=== PATIENT | female | born 1960 | race Caucasian/White ===

== ENCOUNTER 2016-12-30 14:04 | Observation (INO) ==
--- NOTE | 2016-12-30 14:24 | Emergency Department Note ---
Disposition Clinical Impression: Supratherapeutic INR, Hematuria Disposition: Admitted As Inpatient Condition: Fair General Adult HPI - General Chief complaint: ED Syncope Stated complaint: Low blood level Time Seen by Provider: 12/30/16 14:20 Source: patient Limitations: no limitations - History of Present Illness Pain Scale: 8 - Related Data Home Medications Medication Instructions Recorded Confirmed Albuterol Sulfate [Ventolin Hfa] 2 puff IH Q4H PRN 12/30/16 12/30/16 Cetirizine HCl [Zyrtec] 10 mg PO DAILY 12/30/16 12/30/16 EPINEPHrine [Epipen] 0.3 mg IM ONCE PRN 12/30/16 12/30/16 Fluticasone Propionate Nasal 50 mcg NS DAILY 12/30/16 12/30/16 [Flonase] Furosemide [Lasix] 40 mg PO DAILY 12/30/16 12/30/16 Lactulose 20 gm PO TID PRN 12/30/16 12/30/16 Oxycodone HCl [Oxycontin] 30 mg PO Q12H 12/30/16 12/30/16 Potassium Chloride [K-Tab ER] 40 meq PO DAILY 12/30/16 12/30/16 Promethazine [Phenergan] 25 mg PO Q12H PRN 12/30/16 12/30/16 SUMAtriptan Succinate [Imitrex] 4 mg SQ BID PRN 12/30/16 12/30/16 SUMAtriptan Succinate [Imitrex] 100 mg PO DAILY PRN 12/30/16 12/30/16 Sotalol HCl [Betapace] 120 mg PO BID 12/30/16 12/30/16 Tiotropium [Spiriva] 18 mcg IH 0700 12/30/16 12/30/16 Warfarin [Coumadin] 5 mg PO SUTUWETHSA 12/30/16 12/30/16 Warfarin [Coumadin] 7.5 mg PO MOFR 12/30/16 12/30/16 Allergies Allergy/AdvReac Type Severity Reaction Status Date / Time NSAIDS (Non-Steroidal Allergy Anaphylaxis Verified 12/30/16 14:08 Anti-Inflamma Sulfa (Sulfonamide Allergy Anaphylaxis Verified 12/30/16 14:08 Antibiotics) tramadol [From Ultram] AdvReac See Verified 12/30/16 14:09 Comments Past Medical History - Past Medical History Medical history: Reports: CHF, COPD, coronary artery disease, hyperlipidemia, hypertension, liver disease, pulmonary embolus, SVT, other Psychiatric history: Reports: anxiety, bipolar, depression WATER/WASTEWATER PROJECT ENGINEER history: Reports: no WATER/WASTEWATER PROJECT ENGINEER history - Social History Smoking Status: Never smoker Smokeless Tobacco Status: No Alcohol use: Reports: none Drug use: Reports: none Physical Exam - General Limitations: no limitations General appearance: alert Course Vital Signs Temperature 98.2 F 12/30/16 14:08 Pulse Rate 75 12/30/16 14:08 Respiratory Rate 20 12/30/16 14:08 Blood Pressure 136/78 12/30/16 14:08 O2 Sat by Pulse Oximetry 98 12/30/16 14:08 Temperature 98.2 F 12/31/16 02:55 Pulse Rate 70 12/31/16 02:55 Respiratory Rate 17 12/31/16 02:55 Blood Pressure 101/69 12/31/16 02:55 O2 Sat by Pulse Oximetry 96 12/31/16 02:55 Oxygen Delivery Oxygen Delivery Room Air Medical Decision Making - Lab Data Result diagrams: 12/31/16 04:36 12/31/16 04:36 Lab Results 12/30/16 12/30/16 12/30/16 Range/Units 14:35 14:53 14:53 WBC 5.1 (4.3-11.1) K/mcL RBC 4.34 (3.82-4.97) M/mcL Hgb 13.5 (11.5-15.4) g/dL Hct 39.0 (35.3-44.9) % MCV 89.9 (83.0-100.0) fL MCH 31.1 (28.0-33.3) pg MCHC 34.6 (31.6-35.5) g/dL RDW 14.5 (11.5-14.5) % Plt Count 86 L (140-400) K/mcL MPV 10.2 (9.4-12.4) fL Immature Gran % 0.6 (0-4) % Seg Neutrophils % 61.7 % Lymphocytes % 22.3 % Monocytes % 12.2 % Eosinophils % 2.8 % Basophils % 0.4 % Neutrophils # 3.2 (1.6-8.9) K/mcL Lymphocytes # 1.1 (0.6-4.6) K/mcL Monocytes # 0.6 (0.0-1.3) K/mcL Eosinophils # 0.1 (0.0-0.6) K/mcL Basophils # 0.0 (0.0-0.2) K/mcL Platelet Estimate Decreased L (Normal) Immature Plt Fraction 2.5 (1.1-6.1) % PT 92.5 H* (9.4-12.1) Seconds INR 8.0 H* Sodium (136-145) mEq/L Potassium (3.5-4.5) mEq/L Chloride (98-109) mEq/L Carbon Dioxide (19-29) mEq/L BUN (7-20) mg/dL Creatinine (0.57-1.11) mg/dL Est GFR ( Amer) (> 60) Est GFR (Non-Af Amer) (> 60) BUN/Creatinine Ratio (6-26) Glucose (70-99) mg/dL Calculated Osmolality (280-300) Calcium (8.6-10.8) mg/dL Total Bilirubin (0.2-1.2) mg/dL Direct Bilirubin (0.0-0.5) mg/dL Indirect Bilirubin (0.0-1.2) mg/dL AST (5-34) Units/L ALT (0-55) Units/L Alkaline Phosphatase (38-126) Units/L Serum Total Protein (6.0-8.3) g/dL Albumin (3.5-5.0) g/dL Globulin (2.4-3.5) g/dL Albumin/Globulin Ratio (1.1-2.2) Ur Specimen Adequacy See below A Urine Color Red A (Yellow) Urine Clarity Cloudy A (Clear) Urine pH 6.0 (5.0-8.0) pH Units Ur Specific [place] 1.025 (1.010-1.025) Urine Protein 100 H (Neg-Trace) mg/dL Urine Glucose (UA) Normal (Normal) mg/dL Urine Ketones Negative (Negative) mg/dL Urine Blood Large H (Negative) Urine Nitrite Negative (Negative) Urine Bilirubin Small H (Negative) Urine Urobilinogen Normal (Normal) mg/dL Ur Leukocyte Esterase Small H (Negative) Stool Occult Blood (Negative) 12/30/16 12/30/16 Range/Units 14:53 15:27 WBC (4.3-11.1) K/mcL RBC (3.82-4.97) M/mcL Hgb (11.5-15.4) g/dL Hct (35.3-44.9) % MCV (83.0-100.0) fL MCH (28.0-33.3) pg MCHC (31.6-35.5) g/dL RDW (11.5-14.5) % Plt Count (140-400) K/mcL MPV (9.4-12.4) fL Immature Gran % (0-4) % Seg Neutrophils % % Lymphocytes % % Monocytes % % Eosinophils % % Basophils % % Neutrophils # (1.6-8.9) K/mcL Lymphocytes # (0.6-4.6) K/mcL Monocytes # (0.0-1.3) K/mcL Eosinophils # (0.0-0.6) K/mcL Basophils # (0.0-0.2) K/mcL Platelet Estimate (Normal) Immature Plt Fraction (1.1-6.1) % PT (9.4-12.1) Seconds INR Sodium 138 (136-145) mEq/L Potassium 3.7 (3.5-4.5) mEq/L Chloride 104 (98-109) mEq/L Carbon Dioxide 29 (19-29) mEq/L BUN 11 (7-20) mg/dL Creatinine 0.96 (0.57-1.11) mg/dL Est GFR ( Amer) > 60 (> 60) Est GFR (Non-Af Amer) 60 (> 60) BUN/Creatinine Ratio 11 (6-26) Glucose 92 (70-99) mg/dL Calculated Osmolality 285 (280-300) Calcium 9.2 (8.6-10.8) mg/dL Total Bilirubin 0.6 (0.2-1.2) mg/dL Direct Bilirubin 0.4 (0.0-0.5) mg/dL Indirect Bilirubin 0.2 (0.0-1.2) mg/dL AST 70 H (5-34) Units/L ALT 54 (0-55) Units/L Alkaline Phosphatase 171 H (38-126) Units/L Serum Total Protein 6.6 (6.0-8.3) g/dL Albumin 3.4 L (3.5-5.0) g/dL Globulin 3.2 (2.4-3.5) g/dL Albumin/Globulin Ratio 1.1 (1.1-2.2) Ur Specimen Adequacy Urine Color (Yellow) Urine Clarity (Clear) Urine pH (5.0-8.0) pH Units Ur Specific [place] (1.010-1.025) Urine Protein (Neg-Trace) mg/dL Urine Glucose (UA) (Normal) mg/dL Urine Ketones (Negative) mg/dL Urine Blood (Negative) Urine Nitrite (Negative) Urine Bilirubin (Negative) Urine Urobilinogen (Normal) mg/dL Ur Leukocyte Esterase (Negative) Stool Occult Blood Positive A (Negative) Attestation Statement - Attestation Attestation: I examined this patient and my medical decision-making was reviewed with the BIAS BINDING FOLDER/PA/Advanced Practice Nurse/Resident Physician. I agree with the documented findings, disposition and treatment plan as described except to the extent set forth below. [id number] time provided Patient sent from the Coumadin clinic due to an INR of 8. She appears in no acute distress on exam. She does admit to red stools and possible hematuria
--- NOTE | 2016-12-30 14:45 | Emergency Department Note ---
Disposition Clinical Impression: Supratherapeutic INR Hematuria Qualifiers: Hematuria type: gross Qualified Code(s): R31.0 - Gross hematuria Disposition: Admitted As Inpatient Condition: Fair General Adult HPI - General Chief complaint: ED Syncope Stated complaint: Low blood level Time Seen by Provider: 12/30/16 14:20 Source: patient Mode of arrival: ambulatory Limitations: no limitations Nursing Notes Reviewed: Yes Vital Signs Reviewed: Yes - History of Present Illness HPI Narrative: 56-year-old female with a history of A. fib as well as clotting disorder on Coumadin presents for evaluation after abnormal labs. Patient states that she also has a history of liver disease with alpha-1 area Patient states that she typically gets her INR drawn every 3 weeks. Patient was sent over from the Coumadin clinic with an INR point care of 8. Denies any changes in diet or increasing dosages of medications. Patient states that over the past 3 days she did notice bright red blood in her stool and also some red urine. Patient does admit to eating beets however. Patient states she has been increasingly fatigued and weak. Patient also noted some short of breath. Denies any chest pain. Denies any fevers. No cough. No abdominal pain. No nausea or vomiting. States she did have a history of GI bleeding in the past with ulcers. States that she did have a colonoscopy a year ago which noted to have polyps. Patient has needed reversal of her INR in the past. Patient denies any hemoptysis. Pain Scale: 8 - Related Data Home Medications Medication Instructions Recorded Confirmed Albuterol Sulfate [Ventolin Hfa] 2 puff IH Q4H PRN 12/30/16 12/30/16 Cetirizine HCl [Zyrtec] 10 mg PO DAILY 12/30/16 12/30/16 EPINEPHrine [Epipen] 0.3 mg IM ONCE PRN 12/30/16 12/30/16 Fluticasone Propionate Nasal 50 mcg NS DAILY 12/30/16 12/30/16 [Flonase] Furosemide [Lasix] 40 mg PO DAILY 12/30/16 12/30/16 Lactulose 20 gm PO TID PRN 12/30/16 12/30/16 Oxycodone HCl [Oxycontin] 30 mg PO Q12H 12/30/16 12/30/16 Potassium Chloride [K-Tab ER] 40 meq PO DAILY 12/30/16 12/30/16 Promethazine [Phenergan] 25 mg PO Q12H PRN 12/30/16 12/30/16 SUMAtriptan Succinate [Imitrex] 4 mg SQ BID PRN 12/30/16 12/30/16 SUMAtriptan Succinate [Imitrex] 100 mg PO DAILY PRN 12/30/16 12/30/16 Sotalol HCl [Betapace] 120 mg PO BID 12/30/16 12/30/16 Tiotropium [Spiriva] 18 mcg IH 0700 12/30/16 12/30/16 Warfarin [Coumadin] 5 mg PO SUTUWETHSA 12/30/16 12/30/16 Warfarin [Coumadin] 7.5 mg PO MOFR 12/30/16 12/30/16 Allergies Allergy/AdvReac Type Severity Reaction Status Date / Time NSAIDS (Non-Steroidal Allergy Anaphylaxis Verified 12/30/16 14:08 Anti-Inflamma Sulfa (Sulfonamide Allergy Anaphylaxis Verified 12/30/16 14:08 Antibiotics) tramadol [From Ultram] AdvReac See Verified 12/30/16 14:09 Comments All systems ED: reviewed and negative except as stated. Constitutional: Reports: as per HPI. Denies: fever Eyes: Reports: as per HPI ENT ED: Reports: as per HPI Cardiovascular: Reports: as per HPI. Denies: chest pain Respiratory: Reports: as per HPI, dyspnea. Denies: cough Gastrointestinal: Reports: as per HPI, hematemesis. Denies: abdominal pain, nausea, vomiting Genitourinary: Reports: as per HPI, hematuria Musculoskeletal: Reports: as per HPI Integumentary: Reports: as per HPI Neurological: Reports: as per HPI Psychiatric: Reports: as per HPI Endocrine: Reports: as per HPI Hematological/Lymphatic: Reports: as per HPI, easy bruising Past Medical History - Past Medical History Medical history: Reports: CHF, COPD, coronary artery disease, hyperlipidemia, hypertension, liver disease, pulmonary embolus, SVT, other Psychiatric history: Reports: anxiety, bipolar, depression DIRECTOR OF PEOPLE history: Reports: no DIRECTOR OF PEOPLE history - Social History Smoking Status: Never smoker Smokeless Tobacco Status: No Alcohol use: Reports: none Drug use: Reports: none Physical Exam - General Limitations: no limitations General appearance: alert, in no apparent distress - Head Head exam: atraumatic, normocephalic, normal inspection - Eye Eye exam: Present: normal appearance, PERRL, EOMI - ENT ENT exam: normal exam, normal oropharynx, mucous membranes moist - Neck Neck exam: Present: normal inspection, trachea midline - Chest Chest inspection: Present: normal inspection, symmetric chest wall rise - Respiratory Respiratory exam: Present: normal lung sounds bilaterally. Absent: respiratory distress - Cardiovascular Cardiovascular exam: Present: regular rate, normal rhythm - Abdominal Exam Abdominal exam: Present: soft, Non-Tender - Rectal Exam Trial Examiner present during exam: Yes Rectal exam: Present: normal inspection, normal rectal tone. 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 Absent: tenderness - Neurological Exam Neurological exam: Present: alert, oriented X3 - Skin Skin exam: Present: warm, dry, intact, normal color Course Course Narrative: Patient seen and examined. Patient will get repeat lab work including a basic as well as his CBC. She will also get an INR. Urinalysis looks grossly abnormal. Patient also get a stool guaiac. Disposition pending. - Reevaluation(s) Reevaluation #1: Patient seen and examined. Patient in no acute distress. Patient does have supratherapeutic INR with evidence of hematuria as well as occult blood. Patient was given oral vitamin K. Patient is high risk and would recommend men' s admission with trending lab values. Patient is hemodynamically stable and does not warrant any FFP or other reversal at this time. Patient does agree to plan of care. Time: 15:51 Vital Signs Temperature 98.2 F 12/30/16 14:08 Pulse Rate 75 12/30/16 14:08 Respiratory Rate 20 12/30/16 14:08 Blood Pressure 136/78 12/30/16 14:08 O2 Sat by Pulse Oximetry 98 12/30/16 14:08 Temperature 98.8 F 12/30/16 19:47 Pulse Rate 74 12/30/16 19:47 Respiratory Rate 18 12/30/16 19:47 Blood Pressure 123/79 12/30/16 19:47 O2 Sat by Pulse Oximetry 99 12/30/16 19:47 Oxygen Delivery Oxygen Delivery Room Air Medical Decision Making - MDM Narrative Medical decision making narrative: 56-year-old female patients for evaluation of super therapeutic INR. Patient does have evidence of hematuria as well as occult blood. Patient INR was noted to be 8. Patient was reversed with oral vitamin K. Patient's hemoglobin is stable. Given the degree of the patient's INR as well as evidence of hematuria and occult blood the patient would need to be observed. The patient is medically stable and does not warrant any transfusion. Patient is agreeable with plan of care. Patient will get an EKG to evaluate for any cardiac pathology. Patient does not dyspneic with stable vital signs and a chest x-ray was not ordered. Patient will be admitted to hospital service for further evaluation. - Lab Data Lab results reviewed: Yes I reviewed the patient's lab results. Result diagrams: 12/30/16 14:53 12/30/16 14:53 Lab Results 12/30/16 12/30/16 12/30/16 Range/Units 14:35 14:53 14:53 WBC 5.1 (4.3-11.1) K/mcL RBC 4.34 (3.82-4.97) M/mcL Hgb 13.5 (11.5-15.4) g/dL Hct 39.0 (35.3-44.9) % MCV 89.9 (83.0-100.0) fL MCH 31.1 (28.0-33.3) pg MCHC 34.6 (31.6-35.5) g/dL RDW 14.5 (11.5-14.5) % Plt Count 86 L (140-400) K/mcL MPV 10.2 (9.4-12.4) fL Immature Gran % 0.6 (0-4) % Seg Neutrophils % 61.7 % Lymphocytes % 22.3 % Monocytes % 12.2 % Eosinophils % 2.8 % Basophils % 0.4 % Neutrophils # 3.2 (1.6-8.9) K/mcL Lymphocytes # 1.1 (0.6-4.6) K/mcL Monocytes # 0.6 (0.0-1.3) K/mcL Eosinophils # 0.1 (0.0-0.6) K/mcL Basophils # 0.0 (0.0-0.2) K/mcL Platelet Estimate Decreased L (Normal) Immature Plt Fraction 2.5 (1.1-6.1) % PT 92.5 H* (9.4-12.1) Seconds INR 8.0 H* Sodium (136-145) mEq/L Potassium (3.5-4.5) mEq/L Chloride (98-109) mEq/L Carbon Dioxide (19-29) mEq/L BUN (7-20) mg/dL Creatinine (0.57-1.11) mg/dL Est GFR ( Amer) (> 60) Est GFR (Non-Af Amer) (> 60) BUN/Creatinine Ratio (6-26) Glucose (70-99) mg/dL Calculated Osmolality (280-300) Calcium (8.6-10.8) mg/dL Total Bilirubin (0.2-1.2) mg/dL Direct Bilirubin (0.0-0.5) mg/dL Indirect Bilirubin (0.0-1.2) mg/dL AST (5-34) Units/L ALT (0-55) Units/L Alkaline Phosphatase (38-126) Units/L Serum Total Protein (6.0-8.3) g/dL Albumin (3.5-5.0) g/dL Globulin (2.4-3.5) g/dL Albumin/Globulin Ratio (1.1-2.2) Ur Specimen Adequacy See below A Urine Color Red A (Yellow) Urine Clarity Cloudy A (Clear) Urine pH 6.0 (5.0-8.0) pH Units Ur Specific [place] 1.025 (1.010-1.025) Urine Protein 100 H (Neg-Trace) mg/dL Urine Glucose (UA) Normal (Normal) mg/dL Urine Ketones Negative (Negative) mg/dL Urine Blood Large H (Negative) Urine Nitrite Negative (Negative) Urine Bilirubin Small H (Negative) Urine Urobilinogen Normal (Normal) mg/dL Ur Leukocyte Esterase Small H (Negative) Stool Occult Blood (Negative) 12/30/16 12/30/16 Range/Units 14:53 15:27 WBC (4.3-11.1) K/mcL RBC (3.82-4.97) M/mcL Hgb (11.5-15.4) g/dL Hct (35.3-44.9) % MCV (83.0-100.0) fL MCH (28.0-33.3) pg MCHC (31.6-35.5) g/dL RDW (11.5-14.5) % Plt Count (140-400) K/mcL MPV (9.4-12.4) fL Immature Gran % (0-4) % Seg Neutrophils % % Lymphocytes % % Monocytes % % Eosinophils % % Basophils % % Neutrophils # (1.6-8.9) K/mcL Lymphocytes # (0.6-4.6) K/mcL Monocytes # (0.0-1.3) K/mcL Eosinophils # (0.0-0.6) K/mcL Basophils # (0.0-0.2) K/mcL Platelet Estimate (Normal) Immature Plt Fraction (1.1-6.1) % PT (9.4-12.1) Seconds INR Sodium 138 (136-145) mEq/L Potassium 3.7 (3.5-4.5) mEq/L Chloride 104 (98-109) mEq/L Carbon Dioxide 29 (19-29) mEq/L BUN 11 (7-20) mg/dL Creatinine 0.96 (0.57-1.11) mg/dL Est GFR ( Amer) > 60 (> 60) Est GFR (Non-Af Amer) 60 (> 60) BUN/Creatinine Ratio 11 (6-26) Glucose 92 (70-99) mg/dL Calculated Osmolality 285 (280-300) Calcium 9.2 (8.6-10.8) mg/dL Total Bilirubin 0.6 (0.2-1.2) mg/dL Direct Bilirubin 0.4 (0.0-0.5) mg/dL Indirect Bilirubin 0.2 (0.0-1.2) mg/dL AST 70 H (5-34) Units/L ALT 54 (0-55) Units/L Alkaline Phosphatase 171 H (38-126) Units/L Serum Total Protein 6.6 (6.0-8.3) g/dL Albumin 3.4 L (3.5-5.0) g/dL Globulin 3.2 (2.4-3.5) g/dL Albumin/Globulin Ratio 1.1 (1.1-2.2) Ur Specimen Adequacy Urine Color (Yellow) Urine Clarity (Clear) Urine pH (5.0-8.0) pH Units Ur Specific [place] (1.010-1.025) Urine Protein (Neg-Trace) mg/dL Urine Glucose (UA) (Normal) mg/dL Urine Ketones (Negative) mg/dL Urine Blood (Negative) Urine Nitrite (Negative) Urine Bilirubin (Negative) Urine Urobilinogen (Normal) mg/dL Ur Leukocyte Esterase (Negative) Stool Occult Blood Positive A (Negative) - EKG Data EKG #1 EKG shows normal: sinus rhythm Rate: normal Rhythm: NSR Tolar/QRS: normal T wave inversions noted in: aVR Interpretation: no acute changes S.B.ADorie - Yomi.Davidson.ADorie Situation: Demographics Background: Presenting Complaint Assessment: Vital Signs, Course and respsone to treatment, Patient/Family Expectation Recommendation: Barrier(s) to disposition, Recommendation based on pending studies, treatments, or consults S.B.A.RAmy Report Given to: Dr. John Martinez Repor Time: 16:02
[2016-12-30 14:50] LABS: Bilirubin,Urine Small (Negative); Blood,Urine Large (Negative); Glucose,Urine (UA) Normal (Normal); Ketones,Urine Negative (Negative); Leukocyte Esterase,Urine Small (Negative); Nitrite,Urine Negative (Negative); Protein,Urine 100 mg/dL (Neg-Trace); Specific Gravity,Urine 1.025 (1.010-1.025); Urobilinogen,Urine Normal (Normal)
[2016-12-30 14:52] LABS: Clarity,Urine Cloudy (Clear); Color,Urine Red (Yellow)
[2016-12-30 15:02] LABS: Basophils % 0.4 %; Hemoglobin 13.5 g/dL (11.5-15.4)
[2016-12-30 15:04] LABS: Eosinophils # 0.1 K/mcL (0.0-0.6); Eosinophils % 2.8 %; Immature Granulocytes % 0.6 % (0-4); Immature Platelets 2.5 % (1.1-6.1); Lymphocytes # 1.1 K/mcL (0.6-4.6); Lymphocytes % 22.3 %; Mean Corpuscular HGB Conc 34.6 g/dL (31.6-35.5); Mean Corpuscular Hemoglobin 31.1 pg (28.0-33.3); Mean Corpuscular Volume 89.9 fL (83.0-100.0); Mean Platelet Volume 10.2 fL (9.4-12.4); Monocytes # 0.6 K/mcL (0.0-1.3); Monocytes % 12.2 %; Red Blood Count 4.34 M/mcL (3.82-4.97); Red Cell Distribution Width 14.5 % (11.5-14.5); Segmented Neutrophils % 61.7 %
[2016-12-30 15:13] LABS: BUN/Creatinine Ratio 11 (6-26); Blood Urea Nitrogen 11 mg/dL (7-20); Calcium 9.2 mg/dL (8.6-10.8); Carbon Dioxide 29 mEq/L (19-29); Chloride 104 mEq/L (98-109); Glucose 92 mg/dL (70-99); Osmolality,Calculated 285 (280-300); Potassium 3.7 mEq/L (3.5-4.5); Sodium 138 mEq/L (136-145); eGFR For African Americans > 60 (> 60); eGFR For Non-African Americans 60 (> 60)
[2016-12-30 15:14] LABS: Prothrombin Time 92.5 Seconds (9.4-12.1)
[2016-12-30] MEDS ORDERED: *HR* Phytonadione 5 MG TABLET PO ONE (15:17)
[2016-12-30 15:40] LABS: Alanine Aminotransferase 54 Units/L (0-55); Albumin 3.4 g/dL (3.5-5.0); Albumin/Globulin Ratio 1.1 (1.1-2.2); Alkaline Phosphatase 171 Units/L (38-126); Aspartate Amino Transferase 70 Units/L (5-34); Bilirubin,Direct 0.4 mg/dL (0.0-0.5); Bilirubin,Indirect 0.2 mg/dL (0.0-1.2); Bilirubin,Total 0.6 mg/dL (0.2-1.2); Globulin 3.2 g/dL (2.4-3.5); Total Protein 6.6 g/dL (6.0-8.3)
[2016-12-30 15:42] LABS: Neutrophils # 3.2 K/mcL (1.6-8.9); Platelet Count 86 K/mcL (140-400); Platelet Estimate Decreased (Normal)
[2016-12-30] MEDS ORDERED: Naloxone 0.4 MG/ML INJ IVP PRN (18:46)
[2016-12-30] MEDS ORDERED: Acetaminophen 325 MG TABLET PO PRN (18:46)
--- NOTE | 2016-12-30 19:15 | Internal Med History&Physical ---
<Rola Shetty - Last Filed: 12/30/16 20:01> Date of Encounter: 12/30/16 Time of Encounter: 19:08 Assessment and Plan (1) Hematuria Current visit: Yes Status: Acute Patient has gross hematuria in her urine is on Coumadin we will hold for now. We will also check renal ultrasound Qualifiers: Hematuria type: gross Qualified Code(s): R31.0 - Gross hematuria (2) Supratherapeutic INR Current visit: Yes Status: Acute 1 patient is on Coumadin. Was at clinic clinic INR 8. Has been experiencing some hematuria as well as blood in stool. Hemoglobin presently stable. She was given vitamin K in the ER. We will continue to monitor INR and CBC. Transfuse as needed (3) COPD (chronic obstructive pulmonary disease) Current visit: No Status: Chronic 1 presently she is stable she has history of alpha-1 trypsin. We will continue with bronchodilators and oxygen as needed Qualifiers: COPD type: unspecified COPD Qualified Code(s): J44.9 - Chronic obstructive pulmonary disease, unspecified (4) Thrombocytopenia Current visit: No Status: Chronic 1 patient has a history of thrombocytopenia presently 86 which is up from previous. We will monitor for signs and symptoms of bleeding continue to monitor platelets (5) Cirrhosis of liver Current visit: No Status: Chronic 1 presently patient is eating worked up by [facility] for placement on transplant list. Presently labs are stable 2 continue with lactulose-goal of 4 stools daily Qualifiers: Hepatic cirrhosis type: other cirrhosis Qualified Code(s): K74.69 - Other cirrhosis of liver (6) History of pulmonary embolism Current visit: No Status: Chronic 1 will hold coumadin for now recheck INR this evening and in the a.m. resume a back to therapeutic goal was to maintain INR around 2-3 Internal Medicine - H&P: HPI Chief complaint: hematuria Admitted From: Emergency Dept Plans for Post Hospital Care: Home History of present illness: Ms. Feldman is a 56 year old female past medical history of CHF COPD coronary artery disease atrial fibrillation with ablation hyperlipidemia hypertension hepatitis C liver disease pulmonary embolism alpha-1 trypsin. Patient is on Coumadin due to history of pulmonary emboli she generally has her INR drawn every 3 weeks. She was sent to the emergency room today due to INR of 8. She denies any recent changes in her medications and states she has been taking them as prescribed. Over the past 3 days she has noticed bright red blood in her stool as well as hematuria. She was not too concern, she felt was due to her diet because she was eating beets. She has been experiencing increasing fatigue and weakness as well as some shortness of breath. She denies any chest/ abdominal pain fevers chills nausea vomiting. Has a history of of GI bleed in the past with some ulcers she did have a colonoscopy approximately a year ago which she did have some polyps. She has history of supratherapeutic INR in the past as well as thrombocytopenia and has required transfusions as well as reversals She has history of alpha-1 trypsin, she is being worked up for liver transplant through [facility]. In the emergency room patient was given 5 mg of vitamin K orally. Her hemoglobin is stable at this time at 13.5 she was occult stool positive as well as having blood in her urine. She is hemodynamically stable at this time. Presently the patient denies any chest pain or shortness of breath. She does not appear to be respiratory distress. Her lung sounds are clear heart sounds are regular S1 and S2 with no rubs clicks or gallops murmurs noted. 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 I reviewed this case with Mac Past Med Surg Social Fam HX - Past Medical History Medical history: CHF, COPD, coronary artery disease, hyperlipidemia, hypertension, liver disease, pulmonary embolus, SVT, other Psychiatric history: anxiety, bipolar, depression - Social History Smoking Status: Never smoker Smokeless Tobacco Status: No Alcohol use: none Drug use: none - Family History Mother Hx Family Cancer: Yes (leukemia) Father Living Status: Cause of : Brain bleed Internal Medicine - H&P: Meds Albuterol Sulfate [Ventolin Hfa] 2 puff IH Q4H PRN 12/30/16 [History] Cetirizine HCl [Zyrtec] 10 mg PO DAILY 12/30/16 [History] EPINEPHrine [Epipen] 0.3 mg IM ONCE PRN 12/30/16 [History] Fluticasone Propionate Nasal [Flonase] 50 mcg NS DAILY 12/30/16 [History] Furosemide [Lasix] 40 mg PO DAILY 12/30/16 [History] Lactulose 20 gm PO TID PRN 12/30/16 [History] Oxycodone HCl [Oxycontin] 30 mg PO Q12H 12/30/16 [History] Potassium Chloride [K-Tab ER] 40 meq PO DAILY 12/30/16 [History] Promethazine [Phenergan] 25 mg PO Q12H PRN 12/30/16 [History] SUMAtriptan Succinate [Imitrex] 4 mg SQ BID PRN 12/30/16 [History] SUMAtriptan Succinate [Imitrex] 100 mg PO DAILY PRN 12/30/16 [History] Sotalol HCl [Betapace] 120 mg PO BID 12/30/16 [History] Tiotropium [Spiriva] 18 mcg IH 0700 12/30/16 [History] Warfarin [Coumadin] 5 mg PO SUTUWETHSA 12/30/16 [History] Warfarin [Coumadin] 7.5 mg PO MOFR 12/30/16 [History] Allergies NSAIDS (Non-Steroidal Anti-Inflamma Allergy (Verified 12/30/16 14:08) Anaphylaxis Sulfa (Sulfonamide Antibiotics) Allergy (Verified 12/30/16 14:08) Anaphylaxis tramadol [From Ultram] Adverse Reaction (Verified 12/30/16 14:09) See Comments sends heart racing over 200 All Systems PM: A 10-system review of systems was performed and is negative for pertinent findings except as documented above in the HPI. - Constitutional Constitutional: fatigue, weakness, no chills, no fever(s), no night sweats - EENT Eyes: no change in vision, no discharge, no pain, no photophobia Nose, mouth and throat: no dysphagia, no nasal discharge, no neck pain, no sore throat - Cardiovascular Cardiovascular ROS IM: dyspnea, no chest pain, no diaphoresis, no lightheadedness, no palpitations, no syncope - Respiratory Respiratory: no cough, no dyspnea, no wheezing, no excessive phlegm production - Gastrointestinal Gastrointestinal: no abdominal pain, no diarrhea, no hematemesis, no hematochezia, no melena, no nausea, no vomiting - Genitourinary Genitourinary: no change in urinary stream, no dysuria, no flank pain, no hematuria - Musculoskeletal Musculoskeletal ROS IM: no numbness, no tingling - Integumentary Integumentary IM: no rash, no unusual bruising - Neurological Neurological ROS: no confusion, no convulsions, no focal weakness, no numbness, no tingling, no tremor(s) - Hematologic/Lymphatic Hematologic/Lymphatic: easy bleeding, easy bruising - Constitutional Vitals: Temp Pulse Resp BP Pulse Ox 98.2 F 65 18 145/96 100 12/30/16 17:26 12/30/16 17:26 12/30/16 17:26 12/30/16 17:26 12/30/16 17:26 General appearance: Present: A&O X 3, answers questions appropriately - Head Head exam: Present: atraumatic, normocephalic - Eye Eye exam: Present: PERRL, conjuntiva pink, sclera anicteric Pupils: Present: PERRL - Neck Neck exam general surgery: Present: supple, trachea midline. Absent: lymphadenopathy - Respiratory Respiratory exam: Present: CTAB. Absent: accessory muscle use, rales, rhonchi, wheezes - Cardiovascular Cardiovascular exam: Present: RRR, +S1, +S2. Absent: diastolic murmur, gallop, rubs, systolic murmur - GI/Abdominal GI/Abdominal exam: Present: normal bowel sounds, soft, no peritoneal signs. Absent: distended, tenderness - Extremities Exam Extremities exam: Present: warm, radial pulses palpable and symetrical. Absent : calf tenderness, cyanotic, pedal edema Additional comments: Right BKA - Neurological Exam Neurological exam: Present: CN II-XII intact, oriented X3, no focal deficits. Absent: pronater drift, facial droop, speech deficit - Skin Skin exam: Present: dry, intact Internal Med - H&P Results - Labs CBC & Chem 7: 12/30/16 14:53 12/30/16 14:53 - EKG Data EKG shows normal: sinus rhythm - VTE Reasons for not Prescribing Prophylaxis: Not indicated-Anticoagulated or INR therapeutic <Fabio Watts - Last Filed: 12/30/16 21:06> Date of Encounter: 12/30/16 Internal Medicine - H&P: HPI History of present illness: Ms. Feldman is a 56 year old female Past Med Surg Social Fam HX - Past Medical History Medical history: other (+ history of kidney stones) - Genitourinary Genitourinary: flank pain, hematuria, no dysuria - Musculoskeletal Musculoskeletal ROS IM: back pain - Constitutional Vitals: Temp Pulse Resp BP Pulse Ox 98.8 F 74 18 123/79 99 12/30/16 19:47 12/30/16 19:47 12/30/16 19:47 12/30/16 19:47 12/30/16 19:47 General appearance: Present: cooperative, pleasant, no acute distress - Eye Eye exam: Present: EOMI. Absent: scleral icterus Pupils: Present: normal accommodation - ENT ENT exam: Present: mucous membranes moist, normal exam - Neck Neck exam general surgery: Present: supple - Respiratory Respiratory exam: Present: CTAB. Absent: respiratory distress - Cardiovascular Cardiovascular exam: Present: RRR, +S1, +S2 - GI/Abdominal GI/Abdominal exam: Present: soft. Absent: tenderness - Back Exam Back exam: Present: CVA tenderness (L) (mild), CVA tenderness (R) (mild), full ROM - Skin Skin exam: Present: dry, warm Internal Med - H&P Results - Labs CBC & Chem 7: 12/30/16 14:53 12/30/16 14:53 - Attending Attestation I discussed the patient [place], PMH, ROS, lab data, and exam findings with Rola Shetty CNP. I then saw, interviewed, and examined patient independently as well. Per my history, patient does give a history of kdney stones in the past and she does admit to some mild flank pain she's had lately. She denies any dysuria, nausea, or vomiting, however. She denies any fevers. She did note some hematuria today. Given the above symptoms, lab findings, and medical history, I did request to order renal ultrasound and urine culture after my discussion with Rola. Other than my above comments and exam findings, I agree with Rola's assessment and plan.
[2016-12-30] MEDS: *HR* OxyCODONE ER (12 HR) 10 MG TABLET PO SCH (21:00)
[2016-12-30] MEDS: Lactulose Oral Soln 20 GM/30 ML UDC PO SCH (21:02)
[2016-12-30 23:42] LABS: INR 4.6; Prothrombin Time 52.6 Seconds (9.4-12.1)
[2016-12-31 06:01] LABS: Basophils % 0.5 %; Eosinophils # 0.2 K/mcL (0.0-0.6); Eosinophils % 2.8 %; Immature Granulocytes % 0.2 % (0-4); Lymphocytes # 1.2 K/mcL (0.6-4.6); Lymphocytes % 20.5 %; Mean Corpuscular HGB Conc 33.1 g/dL (31.6-35.5); Mean Corpuscular Hemoglobin 29.6 pg (28.0-33.3); Mean Corpuscular Volume 89.6 fL (83.0-100.0); Mean Platelet Volume 9.8 fL (9.4-12.4); Monocytes # 0.7 K/mcL (0.0-1.3); Monocytes % 11.5 %; Neutrophils # 3.7 K/mcL (1.6-8.9); Red Blood Count 4.02 M/mcL (3.82-4.97); Red Cell Distribution Width 14.4 % (11.5-14.5); Segmented Neutrophils % 64.5 %
[2016-12-31 06:02] LABS: Hemoglobin 11.9 g/dL (11.5-15.4); Platelet Count 96 K/mcL (140-400)
[2016-12-31 06:08] LABS: INR 2.6; Prothrombin Time 28.7 Seconds (9.4-12.1)
[2016-12-31 06:13] LABS: BUN/Creatinine Ratio 13 (6-26); Blood Urea Nitrogen 9 mg/dL (7-20); Calcium 8.6 mg/dL (8.6-10.8); Carbon Dioxide 25 mEq/L (19-29); Chloride 105 mEq/L (98-109); Glucose 106 mg/dL (70-99); Osmolality,Calculated 281 (280-300); Potassium 3.5 mEq/L (3.5-4.5); Sodium 136 mEq/L (136-145); eGFR For African Americans > 60 (> 60); eGFR For Non-African Americans > 60 (> 60)
[2016-12-31] MEDS: *HR* OxyCODONE ER (12 HR) 10 MG TABLET PO SCH ×2 (06:55→19:00)
[2016-12-31] MEDS ORDERED: Tiotropium 18 MCG inhalation IH SCH (07:00)
[2016-12-31] MEDS ORDERED: Fluticasone Propionate Nasal 50 MCG/SPRAY BOTTLE NS SCH (09:00)
[2016-12-31] MEDS ORDERED: Loratadine 10 MG TABLET PO SCH (09:00)
[2016-12-31] MEDS ORDERED: Furosemide 40 MG TABLET PO SCH (09:00)
[2016-12-31] MEDS: Lactulose Oral Soln 20 GM/30 ML UDC PO SCH ×3 (09:24→20:03)
--- NOTE | 2016-12-31 09:45 | Internal Med Progress Note ---
<Teena Marroquin - Last Filed: 12/31/16 11:08> Date of Encounter: 12/31/16 Time of Encounter: 08:30 - Assessment and plan (1) Hematuria Current Visit: Yes Status: Acute Assessment and plan: Patient still has gross hematuria in her urine. Coumadin is still on hold. Patient has not noticed blood from her rectum today. Patient denies chest pain, shortness of breath, confusion, nausea, vomiting, abdominal pain. PT- 28.7 INR- 2.6 Qualifiers: Hematuria type: gross Qualified Code(s): R31.0 - Gross hematuria (2) Supratherapeutic INR Current Visit: Yes Status: Acute Assessment and plan: See above (3) Cirrhosis of liver Current Visit: No Status: Chronic Assessment and plan: Patient has a history of Alpha- 1 trypsin patient is being reported by the [facility] to be put on a liver transplant list. Continuing with lactulose Qualifiers: Hepatic cirrhosis type: other cirrhosis Qualified Code(s): K74.69 - Other cirrhosis of liver (4) COPD (chronic obstructive pulmonary disease) Current Visit: No Status: Chronic Assessment and plan: Patient has a history of alpha- 1 trypsin. Continue bronchodilators. Qualifiers: COPD type: unspecified COPD Qualified Code(s): J44.9 - Chronic obstructive pulmonary disease, unspecified (5) Thrombocytopenia Current Visit: No Status: Chronic Assessment and plan: Likely due to chronic liver disease/ alpha 1-trypsin Platelets 96 Continue to trend CBC. (6) History of pulmonary embolism Current Visit: No Status: Chronic Assessment and plan: History of factor 5 leiden and DVT. Holding coumadin due to active bleeding- will likely need anticoagulation. - Subjective Interval history: Patient is comfortably laying in bed. She states that weakness has improved and overall she feels better than she did yesterday. Patient stated that she had dark urine this morning. She denies chest pain, shortness of breath, confusion, change mission, wheezing , abdominal pain, nausea, vomiting. - Constitutional Vitals: Temp Pulse Resp BP Pulse Ox 98.6 F 70 14 97/65 97 12/31/16 07:36 12/31/16 07:36 12/31/16 07:36 12/31/16 07:36 12/31/16 07:36 General appearance: Present: cooperative, pleasant, no acute distress - Eye Eye exam: Present: conjuntiva pink. Absent: scleral icterus - Neck Neck exam general surgery: Present: supple, trachea midline - Respiratory Respiratory exam: Present: CTAB Additional comments: No wheezing, rhonchi, RALES - Cardiovascular Cardiovascular exam: Present: irregular rhythm. Absent: clicks, gallop, rubs - GI/Abdominal GI/Abdominal exam: Present: normal bowel sounds, soft. Absent: guarding - Extremities Exam Extremities exam: Absent: calf tenderness, mottling, pedal edema Additional comments: Right groin discomfort- patient believes it is due to walking - Back Exam Back exam: Absent: rash noted, tenderness - Skin Skin exam: Present: dry, intact Internal Medicine: Result - Labs CBC & Chem 7: 12/31/16 04:36 12/31/16 04:36 Labs: Short CBC 12/31/16 Range/Units 04:36 WBC 5.8 (4.3-11.1) K/mcL Hgb 11.9 D (11.5-15.4) g/dL Hct 36.0 (35.3-44.9) % Plt Count 96 L (140-400) K/mcL Neutrophils # 3.7 (1.6-8.9) K/mcL BMP 12/31/16 04:36 Sodium 136 Potassium 3.5 Chloride 105 Carbon Dioxide 25 BUN 9 Creatinine 0.69 Glucose 106 H Calcium 8.6 Cardiac Enzymes 12/30/16 12/31/16 Range/Units 23:22 04:36 Troponin I 0.00 0.00 (0-0.03) ng/mL - ABG Interpretation ABG results: PT/INR, D-dimer PT 28.7 Seconds (9.4-12.1) H 12/31/16 04:36 - Impressions Impressions Retroperitoneum Ultrasound 12/30/16 22:45 IMPRESSION: 1. No evidence of intrarenal calculus or obstructive uropathy. 2. Mild diffuse bilateral renal parenchymal thinning. 3. Postvoid urinary bladder residual volume of 25 cc. D/ / Mike Adam MD / Mike Adam MD Interpreting Provider: Mike Adam MD - VTE Reasons for not Prescribing Prophylaxis: Not indicated-Anticoagulated or INR therapeutic Consult Discharge Plan - Plan Referrals: Indio Faustin DO [Primary Care Provider] - <BaileeCaroleeNaomimiguelinaMan corea H - Last Filed: 12/31/16 12:41> Date of Encounter: 12/31/16 - Constitutional Vitals: Temp Pulse Resp BP Pulse Ox 98.8 F 66 15 112/77 96 12/31/16 11:49 12/31/16 11:49 12/31/16 11:49 12/31/16 11:49 12/31/16 11:49 Internal Medicine: Result - Labs CBC & Chem 7: 12/31/16 04:36 12/31/16 04:36 Labs: Short CBC 12/31/16 Range/Units 04:36 WBC 5.8 (4.3-11.1) K/mcL Hgb 11.9 D (11.5-15.4) g/dL Hct 36.0 (35.3-44.9) % Plt Count 96 L (140-400) K/mcL Neutrophils # 3.7 (1.6-8.9) K/mcL BMP 12/31/16 04:36 Sodium 136 Potassium 3.5 Chloride 105 Carbon Dioxide 25 BUN 9 Creatinine 0.69 Glucose 106 H Calcium 8.6 Cardiac Enzymes 12/30/16 12/31/16 Range/Units 23:22 04:36 Troponin I 0.00 0.00 (0-0.03) ng/mL - ABG Interpretation ABG results: PT/INR, D-dimer PT 28.7 Seconds (9.4-12.1) H 12/31/16 04:36 - Impressions Impressions Retroperitoneum Ultrasound 12/30/16 22:45 IMPRESSION: 1. No evidence of intrarenal calculus or obstructive uropathy. 2. Mild diffuse bilateral renal parenchymal thinning. 3. Postvoid urinary bladder residual volume of 25 cc. D/ / Mike Adam MD / Mike Adam MD Interpreting Provider: Mike Adam MD - Attending Attestation History of factor V Leyden/pulmonary emboli many years ago on Coumadin, also atrial fibrillation anticoagulation Patient has had episodes of rectal bleed, hematuria is worsens yesterday although INR has improved. She says she has history of TIAs in the past. Explained to her that Dr. Joseph is not available until January 12 and prefers to be transferred to another hired care facility. Option to call surgery and urology was discussed with the patient prefers to be transferred. Spoke with [facility] and unfortunately there would not be any Beds available as the hospital is at 100% occupancy at the moment We will call [facility] to try to arrange that transfer. I examined this patient and my medical decision-making was reviewed with the LEATHER SCRUBBER/PA/Advanced Practice Nurse/Resident Physician. I agree with the documented findings, disposition and treatment plan as described except to the extent set forth below.
--- NOTE | 2016-12-31 11:35 | Electrocardiograph Report ---
[place] [id number] Test Date: 2016-12-30 Pat Name: Poppy Feldman Department: 102 Room: 3A41 Gender: F [employer]: : [id number] Requested By: Rolando Ortiz Order Number: [id number] Reading MD: Urvashi Amato Measurements Intervals [place] Rate: 65 P: 44 MO: 155 QRS: 15 QRSD: 94 T: 0 QT: 381 QTc: 393 Interpretive Statements SINUS RHYTHM Electronically Signed On 12-31-2016 11:33:44 EDT by Urvashi Amato
--- NOTE | 2016-12-31 13:01 | Discharge Summary ---
<Mario Carballo - Last Filed: 12/31/16 12:58> Date of Encounter: 12/31/16 Time of Encounter: 11:30 - Discharge Diagnosis (1) Supratherapeutic INR Priority: Primary Status: Acute (2) Hematuria Priority: Primary Status: Acute Qualifiers: Hematuria type: gross Qualified Code(s): R31.0 - Gross hematuria (3) COPD (chronic obstructive pulmonary disease) Priority: Secondary Status: Chronic Qualifiers: COPD type: unspecified COPD Qualified Code(s): J44.9 - Chronic obstructive pulmonary disease, unspecified (4) Thrombocytopenia Priority: Primary Status: Chronic (5) Cirrhosis of liver Priority: Primary Status: Chronic Qualifiers: Hepatic cirrhosis type: other cirrhosis Qualified Code(s): K74.69 - Other cirrhosis of liver (6) History of pulmonary embolism Priority: Primary Status: Chronic (7) Factor 5 Leiden mutation, heterozygous Priority: Primary Status: Acute - Discharge Medications Home Medications: Albuterol Sulfate [Ventolin Hfa] 2 puff IH Q4H PRN 12/30/16 [History] Cetirizine HCl [Zyrtec] 10 mg PO DAILY 12/30/16 [History] EPINEPHrine [Epipen] 0.3 mg IM ONCE PRN 12/30/16 [History] Fluticasone Propionate Nasal [Flonase] 50 mcg NS DAILY 12/30/16 [History] Furosemide [Lasix] 40 mg PO DAILY 12/30/16 [History] Lactulose 20 gm PO TID PRN 12/30/16 [History] Oxycodone HCl [Oxycontin] 30 mg PO Q12H 12/30/16 [History] Potassium Chloride [K-Tab ER] 40 meq PO DAILY 12/30/16 [History] Promethazine [Phenergan] 25 mg PO Q12H PRN 12/30/16 [History] SUMAtriptan Succinate [Imitrex] 4 mg SQ BID PRN 12/30/16 [History] SUMAtriptan Succinate [Imitrex] 100 mg PO DAILY PRN 12/30/16 [History] Sotalol HCl [Betapace] 120 mg PO BID 12/30/16 [History] Tiotropium [Spiriva] 18 mcg IH 0700 12/30/16 [History] Warfarin [Coumadin] 5 mg PO SUTUWETHSA 12/30/16 [History] Warfarin [Coumadin] 7.5 mg PO MOFR 12/30/16 [History] Allergies/Adverse Reactions: Allergies NSAIDS (Non-Steroidal Anti-Inflamma Allergy (Verified 12/30/16 14:08) Anaphylaxis Sulfa (Sulfonamide Antibiotics) Allergy (Verified 12/30/16 14:08) Anaphylaxis tramadol [From Ultram] Adverse Reaction (Verified 12/30/16 14:09) See Comments sends heart racing over 200 Procedures/tests Complete & Pending: Procedures Performed prior 72 hours Category Date Time Status Retroperitoneal Ultrasound - Complete [US Exams 12/30/16 22:45 Completed retroperitoneal comp] [US] Routine Date of admission: 12/30/16 16:23 Primary care physician: Indio Roque Discharging clinician: Mario Carballo Anticipated date of discharge: 12/31/16 - Patient Status Disposition: Transfer Short-Term Hosp Condition: Fair Overall status at discharge: patient is not back to baseline - Discharge Instructions Follow Up With: Indio Faustin DO [Primary Care Provider] - - Diet and Activity Activity: increase activity as tolerated Diet: advance to your usual diet Interval History: Patient doing well but reports continue to have hematuria, that is worse than was previously. She does report having some hematochezia and hematuria since Thursday, but reports she has been eating a lot of beets and thought this was the cause. Hospital course: Ms. Feldman is a 56 year old female with prior medical history of CHF, COPD, CAD , liver cirrhosis due to alpha 1 antitrypsin mutation, prior pulmonary emboli with Dr. Ryan Tucker mutation came to [facility] on 12/30/16 from her INR clinic after having been found to have an INR of 8. In the emergency department she redemonstrated and INR 8 and was reporting hematuria and hematochezia since Thursday, she had not been concerned due to the fact that she had been eating beets recently. She was given 5 mg vitamin K and her INR improved over the next day. Although her INR was improving she continued to report worsening hematuria. She is currently a patient of the [facility] at which she is receiving regular EGDs and colonoscopies and is being evaluated for potential liver transplant. Her last colonoscopy and EGD performed roughly a year ago showed mild esophageal varices (that were present before) and a precancerous polyp in her colon. She states that she was supposed to have scopes every 6 months. She was reportedly scheduled to undergo EGD and colonoscopy today, 12/30/16, but could not make it due to being hospitalized. With her worsening hematuria, history of clotting disorders, and unavailability of GI at [facility] currently, after discussion with the patient, was deemed best for transfer to a facility with GI availability. - Time Spent with Patient Total time spent providing and/or coordinating discharge services: - Constitutional Vitals: Temp Pulse Resp BP Pulse Ox 98.8 F 66 15 112/77 96 12/31/16 11:49 12/31/16 11:49 12/31/16 11:49 12/31/16 11:49 12/31/16 11:49 General appearance: Present: cooperative, pleasant, no acute distress Exam: General: Cooperative, pleasant, no acute distress, alert and oriented 3, answers questions appropriately HEENT: Normocephalic, atraumatic, neck supple, trachea midline, Conjunctiva pink , sclera anicteric, EOMI, PERRL, oral mucosa moist, no orophargeal erythema or exudates Respiratory: No accessory muscle usage, clear to auscultation bilaterally, no wheezes/rhonchi/rales appreciated Cardiovascular: Regular rhythm, S1 and S2 present, no murmurs/rubs/gallops/ clicks appreciated GI/abdominal: Nondistended, nontender, soft, normal bowel sounds, no peritoneal signs Extremities: No calf tenderness, noncyanotic, no pedal edema appreciated, warm, right BKA Neurological: Alert and oriented 3, no facial droop, no focal deficits Skin: Dry, intact, normal color - VTE Reasons for not Prescribing Prophylaxis: Not indicated-Anticoagulated or INR therapeutic <Man Hernandez - Last Filed: 12/31/16 13:43> Date of Encounter: 12/31/16 Procedures/tests Complete & Pending: Procedures Performed prior 72 hours Category Date Time Status Retroperitoneal Ultrasound - Complete [US Exams 12/30/16 22:45 Completed retroperitoneal comp] [US] Routine Date of admission: 12/30/16 16:23 Primary care physician: Indio Roque [facility] course: Ms. Feldman is a 56 year old female - Time Spent with Patient Total time spent providing and/or coordinating discharge services: - Constitutional Vitals: Temp Pulse Resp BP Pulse Ox 98.8 F 66 15 112/77 96 12/31/16 11:49 12/31/16 11:49 12/31/16 11:49 12/31/16 11:49 12/31/16 11:49 - Attending Attestation Acute blood loss anemia likely secondary to hematuria and rectal bleed exacerbated by supratherapeutic INR History of TIAs, A. fib on Coumadin, factor V Leyden Hold Coumadin, transferred to [facility] Time spent on these discharge: 40 minutes I examined this patient and my medical decision-making was reviewed with the FIELD ART[employer] SENIOR SERGEANT/PA/Advanced Practice Nurse/Resident Physician. I agree with the documented findings, disposition and treatment plan as described except to the extent set forth below.
[2016-12-31] MEDS ORDERED: SUMAtriptan succinate 50 MG TABLET PO ONE (14:06)
[2016-12-31 21:18] VITALS: BP 106/69
--- NOTE | 2017-01-05 08:12 | AntiCoagulation Clinic ---
AntiCoag Clinic Visit Note - Instructions Note Patient Instructions: Any Symptoms of Primary Event (Patient was at [facility] from last Thursday to Thursday.) - Visit Note Diagnosis: All Active Problems (Last Updated 12/31/16 @ 13:21 by Mario Carballo DO) Factor 5 Leiden mutation, heterozygous (Acute) Hematuria (Acute) Supratherapeutic INR (Acute) COPD (chronic obstructive pulmonary disease) (Chronic) Cirrhosis of liver (Chronic) History of pulmonary embolism (Chronic) Thrombocytopenia (Chronic) Pharmacist Visit Note: Poppyjocelyne Feldman was questioned extensively about any missed dosages, any exercise or lifestyle changes, new medication regimens, any changes in diet or increased/decreased vitamin K foods, any bleeding issues, any illnesses including any nausea, vomiting or diarrhea as well as any upcoming surgeries or procedures. Patient denies any further changes. Appointment time: 15 minutes Esme JorgensenD.
== END 2016-12-31 22:19 | disposition short-term general hospital (02) ==
LOC: 3ANU 14:04 → EMEROO 14:04 → SUATTDRO 16:23 → 3ANU 17:21
PROVIDERS: ADMIT Family Medicine; ATTEND Internal Medicine

== ENCOUNTER 2018-04-08 11:59 | Observation (INO) ==
[2018-04-08] MEDS ORDERED: Acetaminophen 325 MG TABLET PO PRN (14:46)
[2018-04-08] MEDS ORDERED: Naloxone 0.4 MG/ML INJ IVP PRN (14:46)
[2018-04-08] MEDS ORDERED: traMADol 50 MG TABLET PO PRN (14:46)
[2018-04-08] MEDS ORDERED: Fluticasone Propionate Nasal 50 MCG/SPRAY BOTTLE NS PRN (14:59)
[2018-04-08] MEDS ORDERED: Vancomycin 1 EACH in 0.9 % Sodium Chloride 250 ML IVPB SCH (15:00)
[2018-04-08] MEDS ORDERED: SUMAtriptan succinate 50 MG TABLET PO PRN (15:00)
[2018-04-08] MEDS ORDERED: Cetirizine HCl 5 MG/5 ML UDC PO PRN (15:02)
--- NOTE | 2018-04-08 15:14 | Internal Med History&Physical ---
Addendum entered and electronically signed by Lucia Eden 04/08/18 16:59: Original Note: <Lucia Eden - Last Filed: 04/08/18 15:03> Date of Encounter: 04/08/18 Time of Encounter: 15:03 Internal Medicine - H&P: HPI Admitted From: Home Plans for Post Hospital Care: Home History of present illness: Ms. Feldman is a 57 year old female with multiple comorbidities significant for migraine, pulmonary embolism, chronic atrial fibrillation, COPD, hepatitis C, hypertension, and factor V Leiden mutation who presented to outside hospital ED complaining of dizziness and hypertension. She was recently seen in the ED and being evaluated for possible left leg cellulitis. ED physician told her that she did not have cellulitis and was discharged home. She has hypertension and takes losartan and the sotalol. She reported her blood pressure was high yesterday and she took an extra dose of losartan. This morning, patient feel lightheaded, she took her blood pressure, the reading was 53/34, she immediately went to the local ED, where she received 1 dose of vancomycin and IV fluid. She was placed on Levophed drip and subsequently was transferred to this hospital for further evaluation. She denies fever, chills, or night sweats. She has no chest pain, shortness breath, or cough. She denies abdominal pain, nausea/vomiting, or diarrhea. She denies dysuria, frequency, or urgency. Patient was admitted to the ICU of this hospital initially, vital signs upon arrival were temperature 99.6, BP 122/73, HR 56, respiration 14, oxygen saturation 100% on room air. Levophed drip was discontinued, patient is hemodynamically stable. Patient will be admitted to telemetry floor for further evaluation. Past Med Surg Social Fam HX - Past Medical History Medical history: atrial fibrillation, cirrhosis, CHF, liver disease, pulmonary embolus, other Additional medical history: alpha 1 disorder, fractures easy. heart disease Psychiatric history: anxiety, bipolar, depression - Past Surgical History Additional surgical history: right hip repair. cardiac ablation. right BKA - Social History Smoking Status: Former smoker Smokeless Tobacco Status: No Alcohol use: none Drug use: none - Family History Father Living Status: Mother Hx Family Cancer: Yes (leukemia) Internal Medicine - H&P: Meds Albuterol Sulfate [Ventolin Hfa] 2 puff IH Q4H PRN 12/22/17 [History] EPINEPHrine [Epipen] 0.3 mg IM ONCE PRN 12/22/17 [History] Losartan [Cozaar] 25 mg PO DAILY 12/22/17 [History] Potassium Chloride [K-Tab ER] 20 meq PO BID PRN 12/22/17 [History] Promethazine [Phenergan] 25 mg PO Q6HR PRN 12/22/17 [History] RX: Fluticasone Propionate Nasal [Flonase] 1 spr NS DAILY PRN 12/22/17 [History] RX: Furosemide [Lasix] 40 - 80 mg PO DAILY PRN 12/22/17 [History] Rivaroxaban [Xarelto] 20 mg PO DAILY 12/22/17 [History] SUMAtriptan Succinate [Imitrex] 100 mg PO Q2H PRN 12/22/17 [History] Sotalol HCl [Betapace] 120 mg PO BID 12/22/17 [History] Acetaminophen [Tylenol] 1,000 mg PO Q6HR PRN 04/08/18 [History] Montelukast [Singulair] 10 mg PO HS 04/08/18 [History] RX: Cyclobenzaprine HCl 5 mg PO TID PRN 04/08/18 [History] RX: Lidocaine Patch [Lidoderm 5% patch] 1 patch TD DAILY 04/08/18 [History] predniSONE [Prednisone] 50 mg PO DAILY 04/08/18 [History] raNITIdine HCl [Zantac] 150 mg PO BID PRN 04/08/18 [History] Allergy/AdvReac Type Severity Reaction Status Date / Time aspirin Allergy Anaphylaxis Verified 04/08/18 14:27 celecoxib [From Celebrex] Allergy Anaphylaxis Verified 04/08/18 14:27 ketorolac [From Toradol] Allergy Anaphylaxis Verified 04/08/18 14:27 modafinil [From Provigil] Allergy Anaphylaxis Verified 04/08/18 14:27 nalbuphine [From Nubain] Allergy Anaphylaxis Verified 04/08/18 14:27 NSAIDS (Non-Steroidal Allergy Anaphylaxis Verified 04/08/18 14:27 Anti-Inflamma pregabalin [From Lyrica] Allergy Anaphylaxis Verified 04/08/18 14:27 prochlorperazine Allergy See Verified 04/08/18 14:27 [From Compazine] Comments Sulfa (Sulfonamide Allergy Anaphylaxis Verified 04/08/18 14:27 Antibiotics) tramadol [From Ultram] AdvReac See Verified 04/08/18 14:27 Comments All Systems PM: A 10-system review of systems was performed and is negative for pertinent findings except as documented above in the HPI. Review of systems: REVIEW OF SYSTEMS: CONSTITUTIONAL: No weight loss, weakness or fatigue, see HPI. HEENT: Eyes: No visual loss, blurred vision, double vision or yellow sclerae. Ears, Nose, Throat: No hearing loss, sneezing, congestion, runny nose or sore throat. SKIN: No rash or itching. CARDIOVASCULAR: No palpitations or edema, see HPI. RESPIRATORY: No shortness of breath, cough or sputum. GASTROINTESTINAL: No anorexia, nausea, vomiting or diarrhea. No abdominal pain or blood. GENITOURINARY: No dysuria, urgency, or frequency. NEUROLOGICAL: No headache, dizziness, syncope, paralysis, ataxia, numbness or tingling in the extremities. No change in bowel or bladder control. MUSCULOSKELETAL: No muscle, back pain, joint pain or stiffness. HEMATOLOGIC: No anemia, bleeding or bruising. LYMPHATICS: No enlarged nodes. No history of splenectomy. PSYCHIATRIC: No history of depression or anxiety. ENDOCRINOLOGIC: No reports of sweating, cold or heat intolerance. No polyuria or polydipsia. - Constitutional General appearance: Present: cooperative, A&O X 3, answers questions appropri ately Exam: PHYSICAL EXAMINATION: GENERAL APPEARANCE: The patient is alert, oriented and in no acute distress. HEENT: Head is normocephalic. The sinuses are nontender. Pupils are equal and reactive. The nares are patent. Oropharynx clear without lesions. NECK: Supple without lymphadenopathy. HEART: Regular rate and rhythm. LUNGS: No crackles or wheezes are heard. ABDOMEN: Soft, nontender, nondistended with good bowel sounds heard. Inguinal area is normal. EXTREMITIES: Without cyanosis, clubbing or edema, right BKA. NEUROLOGICAL: Gross nonfocal. SKIN: Warm and dry without any rash. - Assessment and plan (1) Hypotension Current Visit: Yes Status: Acute Assessment and plan: 57-year-old female with history of hypertension resented with low blood pressure, she reported her blood pressure was 170s yesterday, she took extra dose of losartan. She felt dizziness this morning and BP was 53/34. She received IV fluid, 1 dose of vancomycin, and levophed at the outside Hospital. Vital signs were stable upon arrival, patient will be admitted to telemetry floor. - Undetermined etiology for hypotension. Levophed ma'ed. We will continue sep sis workup including blood culture, chest x-ray, UA, and the lab tests including lactic acid. We will empirically treated with broad spectrum IV antibiotics. Continue IVF for now. - It also could be caused by medication overdose, patient reported she took an extra dose of losartan yesterday. We will hold all the blood pressure medicine for now, resume if indicated. Qualifiers: Hypotension type: unspecified hypotension type Qualified Code(s): I95.9 - Hypotension, unspecified (2) Migraine Current Visit: No Status: Chronic Assessment and plan: Continue home medication Imitrex as needed. Qualifiers: Migraine type: without aura Status migrainosus presence: without status migrainosus Intractability: not intractable Qualified Code(s): G43.009 - Migraine without aura, not intractable, without status migrainosus (3) COPD (chronic obstructive pulmonary disease) Current Visit: No Status: Chronic Assessment and plan: Patient has no respiratory distress, continue home medication with DuoNeb. Qualifiers: COPD type: unspecified COPD Qualified Code(s): J44.9 - Chronic obstructive pulmonary disease, unspecified (4) Cirrhosis of liver Current Visit: No Status: Chronic Assessment and plan: Stable, continue monitoring. Qualifiers: Hepatic cirrhosis type: other cirrhosis Qualified Code(s): K74.69 - Other cirrhosis of liver (5) History of pulmonary embolism Current Visit: No Status: Chronic Assessment and plan: Continue home medication Xarelto. (6) Factor 5 Leiden mutation, heterozygous Current Visit: No Status: Chronic Assessment and plan: Continue home meds Xarelto. (7) Atrial fibrillation Current Visit: No Status: Chronic Assessment and plan: Currently SR with HR 50-60. Hold Sotalol for hypotension. Continue Xarelto. Qualifiers: Atrial fibrillation type: paroxysmal Qualified Code(s): I48.0 - Paroxysmal atrial fibrillation (8) DVT prophylaxis Current Visit: Yes Status: Acute Assessment and plan: Continue Xarelto. - Time Spent With Patient Total time spent is greater than 50% in coordination of care (as documented) at patient's floor/unit and/or counseling patient: Greater than 35 minutes <Frederic Zamora Y - Last Filed: 04/08/18 17:33> Internal Medicine - H&P: HPI History of present illness: Ms. Feldman is a 57 year old female All Systems PM: A 10-system review of systems was performed and is negative for pertinent findings except as documented above in the HPI. - Constitutional Vitals: Temp Pulse Resp BP Pulse Ox 98.2 F 62 18 129/59 99 04/08/18 15:00 04/08/18 16:00 04/08/18 16:00 04/08/18 16:00 04/08/18 16:00 Internal Med - H&P Results - Labs CBC & Chem 7: 04/08/18 16:07 04/08/18 16:07 Labs: Short CBC 04/08/18 Range/Units 16:07 WBC 5.5 (4.3-11.1) K/mcL Hgb 12.2 (11.5-15.4) g/dL Hct 36.2 (35.3-44.9) % Plt Count 98 L (140-400) K/mcL Neutrophils # 3.1 (1.6-8.9) K/mcL BMP 04/08/18 16:07 Sodium 140 Potassium 4.0 Chloride 109 H Carbon Dioxide 28 BUN 16 Creatinine 0.77 Glucose 100 Calcium 9.0 Cardiac Enzymes 04/08/18 Range/Units 16:07 Troponin I < 0.03 (< 0.04) ng/mL Liver Function 04/08/18 Range/Units 16:07 Total Bilirubin 0.7 (0.3-1.0) mg/dL AST 23 (13-39) Units/L ALT 13 (7-52) Units/L Alkaline Phosphatase 90 (34-104) Units/L Albumin 3.3 L (3.5-5.7) g/dL - Impressions ITS Impressions Chest X-Ray 04/08/18 14:49 IMPRESSION: Negative portable chest. D/ / Lit Farley MD / Lit Farley MD Interpreting Provider: Lit Farley MD - Assessment and plan (1) COPD (chronic obstructive pulmonary disease) Current Visit: No Status: Chronic Qualifiers: COPD type: unspecified COPD Qualified Code(s): J44.9 - Chronic obstructive pulmonary disease, unspecified (2) Cirrhosis of liver Current Visit: No Status: Chronic Qualifiers: Hepatic cirrhosis type: other cirrhosis Qualified Code(s): K74.69 - Other cirrhosis of liver (3) History of pulmonary embolism Current Visit: No Status: Chronic (4) Factor 5 Leiden mutation, heterozygous Current Visit: No Status: Chronic (5) Hypotension Current Visit: Yes Status: Acute Qualifiers: Hypotension type: unspecified hypotension type Qualified Code(s): I95.9 - Hypotension, unspecified (6) Migraine Current Visit: No Status: Chronic Qualifiers: Migraine type: without aura Status migrainosus presence: without status migrainosus Intractability: not intractable Qualified Code(s): G43.009 - Migraine without aura, not intractable, without status migrainosus (7) Atrial fibrillation Current Visit: No Status: Chronic Qualifiers: Atrial fibrillation type: paroxysmal Qualified Code(s): I48.0 - Paroxysmal atrial fibrillation (8) DVT prophylaxis Current Visit: Yes Status: Acute - Time Spent With Patient Total time spent is greater than 50% in coordination of care (as documented) at patient's floor/unit and/or counseling patient: - Attending Attestation Patient seen and evaluated. Physical exam performed. Discussed with HOUSE CARPENTER and agreed with plan of care.
[2018-04-08] MEDS ORDERED: *HR* OxyCODONE Immed Rel 5 MG TABLET PO PRN (15:41)
[2018-04-08] MEDS ORDERED: Ondansetron 4 MG/2 ML VIAL IVP PRN (15:42)
[2018-04-08] MEDS: Piperacillin/Tazobactam 3.375 GM in 0.9 % Sodium Chloride Mini Bag 100 ML IVPB SCH (15:50)
[2018-04-08] MEDS: 0.9 % Sodium Chloride 1,000 ML IVC SCH (15:51)
[2018-04-08] MEDS ORDERED: Ipratropium/Albuterol Neb 3 ML IH SCH (16:00)
[2018-04-08] MEDS ORDERED: Ipratropium/Albuterol Neb 3 ML IH PRN (16:02)
[2018-04-08 16:20] LABS: Immature Granulocytes % 0.2 % (0-4)
[2018-04-08 16:22] LABS: Basophils % 0.5 %; Eosinophils # 0.1 K/mcL (0.0-0.6); Eosinophils % 2.6 %; Hematocrit 36.2 % (35.3-44.9); Hemoglobin 12.2 g/dL (11.5-15.4); Immature Platelets 2.1 % (1.1-6.1); Lymphocytes # 1.7 K/mcL (0.6-4.6); Lymphocytes % 30.4 %; Mean Corpuscular HGB Conc 33.7 g/dL (31.6-35.5); Mean Corpuscular Hemoglobin 30.2 pg (28.0-33.3); Mean Corpuscular Volume 89.6 fL (83.0-100.0); Mean Platelet Volume 9.5 fL (9.4-12.4); Monocytes # 0.6 K/mcL (0.0-1.3); Monocytes % 10.4 %; Neutrophils # 3.1 K/mcL (1.6-8.9); Red Blood Count 4.04 M/mcL (3.82-4.97); Red Cell Distribution Width 13.7 % (11.5-14.5); Segmented Neutrophils % 55.9 %
[2018-04-08 16:23] LABS: Platelet Count 98 K/mcL (140-400)
[2018-04-08 16:40] LABS: INR 2.4; Prothrombin Time 27.1 Seconds (9.4-12.1)
[2018-04-08 16:41] LABS: Alanine Aminotransferase 13 Units/L (7-52); Albumin 3.3 g/dL (3.5-5.7); Albumin/Globulin Ratio 1.6 (1.1-2.2); Alkaline Phosphatase 90 Units/L (34-104); Aspartate Amino Transferase 23 Units/L (13-39); BUN/Creatinine Ratio 21 (6-26); Bilirubin,Total 0.7 mg/dL (0.3-1.0); Blood Urea Nitrogen 16 mg/dL (6-20); Carbon Dioxide 28 mEq/L (23-29); Chloride 109 mEq/L (98-107); Globulin 2.1 g/dL (2.4-3.5); Glucose 100 mg/dL (70-105); Magnesium 1.8 mg/dL (1.6-2.6); Osmolality,Calculated 291 (280-300); Sodium 140 mEq/L (136-145); Total Protein 5.4 g/dL (6.4-8.9); eGFR For Non-African Americans > 60 (> 60)
[2018-04-08] MEDS ORDERED: *HR* Rivaroxaban 10 MG TABLET PO SCH (17:00)
[2018-04-08] MEDS: *HR* OxyCODONE Immed Rel 5 MG TABLET PO PRN (21:13)
[2018-04-08] MEDS ORDERED: Famotidine 20 MG TABLET PO PRN (21:40)
[2018-04-09] MEDS: Piperacillin/Tazobactam 3.375 GM in 0.9 % Sodium Chloride Mini Bag 100 ML IVPB SCH ×2 (01:36→09:37)
[2018-04-09] MEDS: 0.9 % Sodium Chloride 1,000 ML IVC SCH (06:52)
[2018-04-09] MEDS ORDERED: Loratadine 10 MG TABLET PO PRN (07:46)
[2018-04-09] MEDS: *HR* Rivaroxaban 10 MG TABLET PO SCH (09:36)
[2018-04-09] MEDS: *HR* OxyCODONE Immed Rel 5 MG TABLET PO PRN ×2 (09:37→20:03)
[2018-04-09] MEDS ORDERED: Aminoglycoside Consult 1 EACH MC ONE (13:49)
--- NOTE | 2018-04-09 17:47 | Internal Med Progress Note ---
Hospitalist Progress Note - Encounter Date of Encounter: 04/09/18 Time of Encounter: 17:43 - Subjective Interval History: Pt states she has been having trouble with losartan. She states it had not been controlling her BP. She denies CP or Shortness of breath. - Exam Vitals: Temp Pulse Resp BP Pulse Ox 98.6 F 79 18 158/86 98 04/09/18 17:10 04/09/18 17:10 04/09/18 17:10 04/09/18 17:10 04/09/18 17:10 Exam: PHYSICAL EXAMINATION: GENERAL APPEARANCE: The patient is alert, oriented and in no acute distress. HEENT: Head is normocephalic. The sinuses are nontender. Pupils are equal and reactive. The nares are patent. Oropharynx clear without lesions. NECK: Supple without lymphadenopathy. HEART: Regular rate and rhythm. LUNGS: No crackles or wheezes are heard. ABDOMEN: Soft, nontender, nondistended with good bowel sounds heard. Inguinal area is normal. EXTREMITIES: Without cyanosis, clubbing or edema, right BKA. NEUROLOGICAL: Gross nonfocal. SKIN: Warm and dry without any rash. - Assessment and Plan (1) COPD (chronic obstructive pulmonary disease) Current Visit: No Status: Chronic Assessment and Plan: Patient has no respiratory distress, continue home medication with DuoNeb. (2) Atrial fibrillation Current Visit: No Status: Chronic Assessment and Plan: Currently SR with HR 50-60. No need to hold Sotalol. Will resume home dose Sotalol and continued on Xarelto. (3) History of pulmonary embolism Current Visit: No Status: Chronic Assessment and Plan: Continue home medication Xarelto. (4) Factor 5 Leiden mutation, heterozygous Current Visit: No Status: Chronic Assessment and Plan: Continue home meds Xarelto. (5) Hypotension Current Visit: Yes Status: Acute Assessment and Plan: Likely due to taking Losartan too close together. Levophed dc'ed on admission. Sepsis workup including blood culture, chest x-ray, UA, and the lab tests i ncluding lactic acid where all essentially neg. - She was placed on antibiotic empirically treated with broad spectrum but that was discontinued. Continue IVF for now. - She states Losartan does not appear to be working for her. We DC losartan and start on HCTZ 12.5 mg PO QD. - If she tolerates and is still hypertensive, will increase HCTZ to 12.5 mg PO BID and have her f/u with her PCP out pt. (6) Migraine Current Visit: No Status: Chronic Assessment and Plan: Continue home medication Imitrex as needed. DVT Prophylaxis: Xarelto - Summary of Assessment and Plan Summary of Assessment and Plan: Ms. Feldman is a 57 year old female with multiple comorbidities significant for migraine, pulmonary embolism, chronic atrial fibrillation, COPD, hepatitis C, hypertension, and factor V Leiden mutation who presented to outside hospital ED complaining of dizziness and hypertension. She was recently seen in the ED and being evaluated for possible left leg cellulitis. ED physician told her that she did not have cellulitis and was discharged home. She has hypertension and takes losartan and the sotalol. She reported her blood pressure was high yesterday and she took an extra dose of losartan. This morning, patient feel lightheaded, she took her blood pressure, the reading was 53/34, she immediately went to the local ED, where she received 1 dose of vancomycin and IV fluid. She was placed on Levophed drip and subsequently was transferred to this hospital for further evaluation. She denies fever, chills, or night sweats. She has no chest pain, shortness breath, or cough. She denies abdominal pain, nausea/vomiting, or d iarrhea. She denies dysuria, frequency, or urgency. Patient was admitted to the ICU of this hospital initially, vital signs upon arrival were temperature 99.6, BP 122/73, HR 56, respiration 14, oxygen saturation 100% on room air. Levophed drip was discontinued, patient is hemodynamically stable. Patient admitted to telemetry floor for further evaluation. - Time Spent with Patient Total time spent is greater than 50% in coordination of care (as documented) at patient's floor/unit and/or counseling patient: less than 15 minutes Plan of Care Discussed with: patient Internal Medicine: Result - Labs CBC & Chem 7: 04/08/18 16:07 04/08/18 16:07 Labs: Cardiac Enzymes 04/08/18 Range/Units 22:29 Troponin I < 0.03 (< 0.04) ng/mL - ABG Interpretation ABG results: PT/INR, D-dimer PT 27.1 Seconds (9.4-12.1) H 04/08/18 16:07 Consult Discharge Plan - Plan Referrals: NONE,PCP [Primary Care Provider] - (1) COPD (chronic obstructive pulmonary disease) Qualifiers: COPD type: unspecified COPD Qualified Code(s): J44.9 - Chronic obstructive pulmonary disease, unspecified (2) Atrial fibrillation Qualifiers: Atrial fibrillation type: paroxysmal Qualified Code(s): I48.0 - Paroxysmal atrial fibrillation (5) Hypotension Qualifiers: Hypotension type: unspecified hypotension type Qualified Code(s): I95.9 - Hypotension, unspecified (6) Migraine Qualifiers: Migraine type: without aura Status migrainosus presence: without status migrainosus Intractability: not intractable Qualified Code(s): G43.009 - Migra ine without aura, not intractable, without status migrainosus
[2018-04-09] MEDS: hydroCHLOROthiazide 25 MG TABLET PO SCH (19:55)
[2018-04-10] MEDS: *HR* OxyCODONE Immed Rel 5 MG TABLET PO PRN (05:05)
[2018-04-10 07:00] VITALS: BP 128/79
--- NOTE | 2018-04-10 08:34 | Discharge Summary ---
- NOTES TO OUTPATIENT PROVIDER Notes to Outpatient Provider: PCP in 5 to 7 days Orders not resulted at time of discharge: Pending orders 04/08/18 14:49 UA done at [facility] negative [Urinalysis Dipstick Only] [URIN] Routine 04/08/18 16:03 Culture,Blood [BC] no growth to date Date of Encounter: 04/10/18 Time of Encounter: 08:31 - Discharge Diagnosis (1) Hypotension Priority: Primary Status: Acute Assessment and Plan: Likely due to taking Losartan too close together. Levophed started at [facility] was DC'ed on admission to [facility] ICU. - Sepsis workup including blood culture, chest x-ray, UA, and the lab tests including lactic acid where all essentially neg. - She was placed on antibiotic empirically treated with broad spectrum but that was discontinued. Continue IVF for now. - She states Losartan does not appear to be working for her. We DC'ed losartan and start on HCTZ 12.5 mg PO QD. - If she tolerates and is still hypertensive, will increase HCTZ to 12.5 mg PO BID and have her f/u with her PCP out pt. Qualifiers: Hypotension type: unspecified hypotension type Qualified Code(s): I95.9 - Hypotension, unspecified (2) Atrial fibrillation Priority: Secondary Status: Chronic Assessment and Plan: Currently SR with HR 60-70. Resume home dose Sotalol and continued on Xarelto. Qualifiers: Atrial fibrillation type: paroxysmal Qualified Code(s): I48.0 - Paroxysmal atrial fibrillation (3) COPD (chronic obstructive pulmonary disease) Priority: Secondary Status: Chronic Assessment and Plan: Patient has no respiratory distress, continue home medication with DuoNeb. Qualifiers: COPD type: unspecified COPD Qualified Code(s): J44.9 - Chronic obstructive pulmonary disease, unspecified (4) History of pulmonary embolism Priority: Secondary Status: Chronic Assessment and Plan: Continue home medication Xarelto. (5) Factor 5 Leiden mutation, heterozygous Priority: Secondary Status: Chronic Assessment and Plan: Continue home meds Xarelto. (6) Migraine Priority: Secondary Status: Chronic Assessment and Plan: Continue home medication Imitrex as needed. Qualifiers: Migraine type: without aura Status migrainosus presence: without status migrainosus Intractability: not intractable Qualified Code(s): G43.009 - Migraine without aura, not intractable, without status migrainosus Hospital course: Ms. Feldman is a 57 year old female with multiple comorbidities significant for migraine, pulmonary embolism, chronic atrial fibrillation, COPD, hepatitis C, hypertension, and factor V Leiden mutation who presented to outside hospital ED complaining of dizziness and hypertension. She was recently seen in the ED and being evaluated for possible left leg cellulitis. ED physician told her that she did not have cellulitis and was discharged home. She has hypertension and Hx of Afib for which she takes losartan and sotalol. She reported her blood pressure was high the day prior to admission and she took a dose of losartan the night before and again the next morning. The next morning, patient reported feeling lightheaded, she took her blood pressure, the reading was 53/34, she immediately went to the local ED, where she received 1 dose of vancomycin, IV fluid, and was placed on Levophed drip for ochoa was probably thought to be sepsis. She was subsequently transferred to [facility] for further evaluation. She denied fever, chills, or night sweats. She denied having any chest pain, shortness breath, or cough. She denied abdominal pain, nausea/vomiting, or diarrhea. She denied dysuria, frequency, or urgency. Patient was admitted to the ICU of this hospital initially. Vital signs upon arrival were temperature 99.6, BP 122/73, HR 56, respiration 14, oxygen saturation 100% on room air. Within 4 hours of arrival to ICU, Levophed drip was discontinued as patient was hemodynamically stable. Patient was transfered to telemetry floor for further evaluation/monitoring. See assessment and plan for hospital course. Discharge discussed with: patient - Time Spent with Patient Total time spent providing and/or coordinating discharge services: Greater than 30 minutes - Discharge Medications Prescriptions: hydroCHLOROthiazide [Hydrochlorothiazide] 12.5 mg PO DAILY 30 Days #30 tablet Home Medications: Albuterol Sulfate [Ventolin Hfa] 2 puff IH Q4H PRN 12/22/17 [History] EPINEPHrine [Epipen] 0.3 mg IM ONCE PRN 12/22/17 [History] Fluticasone Propionate Nasal [Flonase] 1 spr NS DAILY PRN 12/22/17 [History] Furosemide [Lasix] 40 - 80 mg PO DAILY PRN 12/22/17 [History] Potassium Chloride [K-Tab ER] 20 meq PO BID PRN 12/22/17 [History] Promethazine [Phenergan] 25 mg PO Q6HR PRN 12/22/17 [History] Rivaroxaban [Xarelto] 20 mg PO DAILY 12/22/17 [History] SUMAtriptan Succinate [Imitrex] 100 mg PO Q2H PRN 12/22/17 [History] Sotalol HCl [Betapace] 120 mg PO BID 12/22/17 [History] Acetaminophen [Tylenol] 1,000 mg PO Q6HR PRN 04/08/18 [History] Cyclobenzaprine HCl 5 mg PO TID PRN 04/08/18 [History] Lidocaine Patch [Lidoderm 5% patch] 1 patch TD DAILY 04/08/18 [History] Montelukast [Singulair] 10 mg PO HS 04/08/18 [History] predniSONE [Prednisone] 50 mg PO DAILY 04/08/18 [History] raNITIdine HCl [Zantac] 150 mg PO BID PRN 04/08/18 [History] hydroCHLOROthiazide [Hydrochlorothiazide] 12.5 mg PO DAILY 30 Days #30 tablet 04/10/18 [Rx] Allergies/Adverse Reactions: Allergy/AdvReac Type Severity Reaction Status Date / Time aspirin Allergy Anaphylaxis Verified 04/08/18 14:27 celecoxib [From Celebrex] Allergy Anaphylaxis Verified 04/08/18 14:27 ketorolac [From Toradol] Allergy Anaphylaxis Verified 04/08/18 14:27 modafinil [From Provigil] Allergy Anaphylaxis Verified 04/08/18 14:27 nalbuphine [From Nubain] Allergy Anaphylaxis Verified 04/08/18 14:27 NSAIDS (Non-Steroidal Allergy Anaphylaxis Verified 04/08/18 14:27 Anti-Inflamma pregabalin [From Lyrica] Allergy Anaphylaxis Verified 04/08/18 14:27 prochlorperazine Allergy See Verified 04/08/18 14:27 [From Compazine] Comments Sulfa (Sulfonamide Allergy Anaphylaxis Verified 04/08/18 14:27 Antibiotics) tramadol [From Ultram] AdvReac See Verified 04/08/18 14:27 Comments Date of admission: 04/08/18 13:53 Primary care physician: PCP NONE Discharging clinician: Yamileth Maza Anticipated date of discharge: 04/10/18 - Constitutional Vitals: Temp Pulse Resp BP Pulse Ox 99.3 F 66 16 128/79 97 04/10/18 06:59 04/10/18 06:59 04/10/18 06:59 04/10/18 06:59 04/10/18 06:59 General appearance: Present: cooperative, A&O X 3, answers questions appropriately Exam: Right BKA - Head Head exam: Present: atraumatic, normocephalic - Eye Eye exam: Present: PERRL, conjuntiva pink, sclera anicteric Pupils: Present: PERRL - Neck Neck exam general surgery: Present: supple, trachea midline. Absent: lymphadenopathy - Respiratory Respiratory exam: Present: CTAB. Absent: accessory muscle use, rales, rhonchi, wheezes - Cardiovascular Cardiovascular exam: Present: RRR, +S1, +S2. Absent: diastolic murmur, gallop, rubs, systolic murmur - GI/Abdominal GI/Abdominal exam: Present: normal bowel sounds, soft, no peritoneal signs. Absent: distended, tenderness - Extremities Exam Extremities exam: Present: warm, radial pulses palpable and symmetrical. Absent: calf tenderness, cyanotic, pedal edema Additional comments: Right BKA - Neurological Exam Neurological exam: Present: CN II-XII intact, oriented X3, no focal deficits. Absent: pronater drift, facial droop, speech deficit - Skin Skin exam: Present: dry, intact - Patient Status Disposition: Home, Self-Care Condition: Good Overall status at discharge: patient is back to baseline - Discharge Instructions Follow Up With: NONE,PCP [Primary Care Provider] - - Diet and Activity Activity: increase activity as tolerated Diet: regular diet
[2018-04-10] MEDS: *HR* Rivaroxaban 10 MG TABLET PO SCH (08:51)
[2018-04-10] MEDS: hydroCHLOROthiazide 25 MG TABLET PO SCH (08:51)
== END 2018-04-10 13:50 | disposition home or self-care (01) ==
LOC: ICNU 13:53 → INTOOBSV 13:53 → 2ANU 18:11
PROVIDERS: ADMIT Internal Medicine; ATTEND Internal Medicine

== ENCOUNTER 2020-04-29 20:46 | Observation (INO) ==
[2020-04-29] MEDS ORDERED: Ondansetron 4 MG/2 ML VIAL IVP ONE (21:03)
[2020-04-29] MEDS ORDERED: 0.9 % Sodium Chloride 1,000 ML IVC ONE (21:03)
[2020-04-29] MEDS ORDERED: *HR* HYDROcodone/Acet 5/325 mg TABLET PO ONE (21:05)
[2020-04-29 21:39] LABS: Hemoglobin 12.2 g/dL (11.5-15.4); Red Blood Count 4.06 M/mcL (3.82-4.97); Red Cell Distribution Width 13.2 % (11.5-14.5)
[2020-04-29 21:41] LABS: Basophils % 0.4 %; Eosinophils # 0.1 K/mcL (0.0-0.6); Eosinophils % 1.3 %; Immature Granulocytes % 0.4 % (0-4); Immature Platelets 2.9 % (1.1-6.1); Lymphocytes # 0.6 K/mcL (0.6-4.6); Lymphocytes % 10.9 %; Mean Corpuscular HGB Conc 33.9 g/dL (31.6-35.5); Mean Corpuscular Volume 88.7 fL (83.0-100.0); Monocytes # 0.8 K/mcL (0.0-1.3); White Blood Count 5.5 K/mcL (4.3-11.1)
[2020-04-29 21:56] LABS: Alanine Aminotransferase 12 Units/L (7-52); Albumin 3.5 g/dL (3.5-5.7); Albumin/Globulin Ratio 1.5 (1.1-2.2); Alkaline Phosphatase 87 Units/L (34-104); Aspartate Amino Transferase 20 Units/L (13-39); BUN/Creatinine Ratio 11 (6-26); Bilirubin,Direct 0.3 mg/dL (0.0-0.2); Bilirubin,Indirect 0.7 mg/dL (0.0-1.0); Blood Urea Nitrogen 8 mg/dL (8-23); Calcium 8.5 mg/dL (8.6-10.3); Carbon Dioxide 24 mEq/L (23-29); Chloride 106 mEq/L (98-107); Globulin 2.4 g/dL (2.4-3.5); Glucose 108 mg/dL (70-105); INR 1.7; Lipase 10 Units/L (11-82); Osmolality,Calculated 281 (280-300); Potassium 3.7 mEq/L (3.5-5.1); Prothrombin Time 19.9 Seconds (9.4-12.1); Sodium 136 mEq/L (136-145); Total Protein 5.9 g/dL (6.4-8.9); eGFR For African Americans > 60 (> 60); eGFR For Non-African Americans > 60 (> 60)
[2020-04-29 21:58] LABS: Troponin I < 0.03 ng/mL (< 0.04)
[2020-04-29 22:04] LABS: Platelet Count 62 K/mcL (140-400)
[2020-04-29 22:05] LABS: Platelet Estimate Decreased (Normal)
[2020-04-29] MEDS ORDERED: Morphine Sulfate 2 MG/ML SYRINGE IVP ONE (22:46)
[2020-04-29] MEDS ORDERED: Naloxone 0.4 MG/ML INJ IVP PRN (23:12)
[2020-04-30] MEDS ORDERED: *HR* HYDROcodone/Acet 7.5/325 mg TABLET PO PRN
[2020-04-30] MEDS: Piperacillin/Tazobactam 3.375 GM in 0.9 % Sodium Chloride Mini Bag 100 ML IVPB SCH ×3 (01:04→15:36)
[2020-04-30 04:48] LABS: Bilirubin,Urine Negative (Negative); Blood,Urine Negative (Negative); Clarity,Urine Clear (Clear); Color,Urine Yellow (Yellow); Glucose,Urine (UA) Normal (Normal); Ketones,Urine Negative (Negative); Leukocyte Esterase,Urine Negative (Negative); Nitrite,Urine Negative (Negative); Protein,Urine Negative (Neg-Trace); Specific Gravity,Urine 1.015 (1.010-1.025)
[2020-04-30 04:51] LABS: Mucus,Urine Few per lpf (None-Few); RBC,Urine 0-3 per hpf (0-3); Squamous Epithelial Cell,Urine Few per hpf (None-Few); WBC,Urine 0-3 per hpf (0-3)
[2020-04-30 05:19] LABS: Basophils % 0.2 %; Hemoglobin 10.8 g/dL (11.5-15.4); Red Cell Distribution Width 13.3 % (11.5-14.5)
[2020-04-30 05:21] LABS: Eosinophils # 0.1 K/mcL (0.0-0.6); Eosinophils % 2.3 %; Immature Granulocytes % 0.2 % (0-4); Immature Platelets 2.6 % (1.1-6.1); Lymphocytes # 0.6 K/mcL (0.6-4.6); Lymphocytes % 12.6 %; Mean Corpuscular HGB Conc 32.7 g/dL (31.6-35.5); Mean Corpuscular Hemoglobin 29.5 pg (28.0-33.3); Mean Corpuscular Volume 90.2 fL (83.0-100.0); Mean Platelet Volume 10.1 fL (9.4-12.4); Monocytes # 0.7 K/mcL (0.0-1.3); Monocytes % 16.3 %; Red Blood Count 3.66 M/mcL (3.82-4.97); Segmented Neutrophils % 68.4 %; White Blood Count 4.4 K/mcL (4.3-11.1)
[2020-04-30 05:23] LABS: Platelet Count 59 K/mcL (140-400)
[2020-04-30 05:33] LABS: BUN/Creatinine Ratio 12 (6-26); Blood Urea Nitrogen 7 mg/dL (8-23); Calcium 7.8 mg/dL (8.6-10.3); Carbon Dioxide 23 mEq/L (23-29); Chloride 110 mEq/L (98-107); Glucose 98 mg/dL (70-105); Osmolality,Calculated 280 (280-300); Potassium 3.6 mEq/L (3.5-5.1); Sodium 136 mEq/L (136-145); eGFR For African Americans > 60 (> 60); eGFR For Non-African Americans > 60 (> 60)
[2020-04-30 05:34] LABS: Albumin/Globulin Ratio 1.5 (1.1-2.2); Bilirubin,Direct 0.3 mg/dL (0.0-0.2); Bilirubin,Indirect 0.7 mg/dL (0.0-1.0)
[2020-04-30] MEDS: Ondansetron 4 MG/2 ML VIAL IVP PRN ×3 (05:37→17:37)
[2020-04-30] MEDS: *HR* HYDROmorphone (PF) 1 MG/ML SYRINGE IVP PRN ×3 (06:03→17:38)
[2020-04-30 06:14] LABS: INR 3.2; Prothrombin Time 35.3 Seconds (9.4-12.1)
[2020-04-30 08:30] LABS: Fibrinogen 331 mg/dL (169-393)
[2020-04-30 08:31] LABS: D-Dimer 838 ng/mLFEU (0-500)
[2020-04-30] MEDS ORDERED: Loratadine 10 MG TABLET PO PRN (12:08)
[2020-04-30] MEDS ORDERED: SUMAtriptan succinate 50 MG TABLET PO PRN (12:08)
[2020-04-30] MEDS ORDERED: Furosemide 20 MG TABLET PO PRN (12:08)
[2020-04-30] MEDS ORDERED: GuaiFENesin/Dextromethorphan TABLET PO PRN (12:08)
[2020-04-30] MEDS: Gabapentin 300 MG CAPSULE PO SCH ×3 (12:38→20:03)
[2020-04-30] MEDS ORDERED: Ipratropium/Albuterol Neb 3 ML IH PRN (16:00)
[2020-05-01] MEDS: Piperacillin/Tazobactam 3.375 GM in 0.9 % Sodium Chloride Mini Bag 100 ML IVPB SCH ×3 (01:25→17:33)
[2020-05-01 07:20] LABS: Basophils % 0.8 %
[2020-05-01 07:22] LABS: Eosinophils # 0.1 K/mcL (0.0-0.6); Eosinophils % 4.9 %; Hematocrit 34.8 % (35.3-44.9); Hemoglobin 11.4 g/dL (11.5-15.4); Immature Platelets 2.7 % (1.1-6.1); Lymphocytes # 0.7 K/mcL (0.6-4.6); Lymphocytes % 28.9 %; Mean Corpuscular HGB Conc 32.8 g/dL (31.6-35.5); Mean Corpuscular Hemoglobin 29.3 pg (28.0-33.3); Mean Corpuscular Volume 89.5 fL (83.0-100.0); Mean Platelet Volume 10.4 fL (9.4-12.4); Monocytes # 0.5 K/mcL (0.0-1.3); Monocytes % 19.5 %; Neutrophils # 1.2 K/mcL (1.6-8.9); Platelet Count 76 K/mcL (140-400); Red Blood Count 3.89 M/mcL (3.82-4.97); Red Cell Distribution Width 13.6 % (11.5-14.5); Segmented Neutrophils % 45.9 %; White Blood Count 2.5 K/mcL (4.3-11.1)
[2020-05-01 07:26] LABS: INR 1.3; Prothrombin Time 15.2 Seconds (9.4-12.1)
[2020-05-01 07:47] LABS: BUN/Creatinine Ratio 13 (6-26); Blood Urea Nitrogen 8 mg/dL (8-23); Calcium 8.6 mg/dL (8.6-10.3); Carbon Dioxide 24 mEq/L (23-29); Chloride 110 mEq/L (98-107); Glucose 105 mg/dL (70-105); Osmolality,Calculated 289 (280-300); Potassium 3.8 mEq/L (3.5-5.1); Sodium 140 mEq/L (136-145); eGFR For African Americans > 60 (> 60); eGFR For Non-African Americans > 60 (> 60)
[2020-05-01] MEDS: Ondansetron 4 MG/2 ML VIAL IVP PRN ×2 (09:37→17:40)
[2020-05-01] MEDS: *HR* Rivaroxaban 10 MG TABLET PO SCH (09:40)
[2020-05-01] MEDS: Gabapentin 300 MG CAPSULE PO SCH ×4 (09:41→20:35)
[2020-05-01] MEDS: Fluticasone Propionate Nasal 50 MCG/SPRAY BOTTLE NS SCH (10:24)
[2020-05-01] MEDS: *HR* HYDROmorphone (PF) 1 MG/ML SYRINGE IVP PRN ×2 (11:40→20:39)
[2020-05-01] MEDS ORDERED: Sennosides/Docusate Sodium TABLET PO PRN (11:53)
[2020-05-02] MEDS: Piperacillin/Tazobactam 3.375 GM in 0.9 % Sodium Chloride Mini Bag 100 ML IVPB SCH ×2 (00:42→08:33)
[2020-05-02 06:20] LABS: Basophils % 0.6 %; Eosinophils # 0.2 K/mcL (0.0-0.6); Eosinophils % 5.6 %; Hematocrit 36.6 % (35.3-44.9); Hemoglobin 11.6 g/dL (11.5-15.4); Immature Granulocytes % 0.3 % (0-4); Lymphocytes # 0.9 K/mcL (0.6-4.6); Lymphocytes % 26.3 %; Mean Corpuscular HGB Conc 31.7 g/dL (31.6-35.5); Mean Corpuscular Hemoglobin 28.9 pg (28.0-33.3); Mean Corpuscular Volume 91.3 fL (83.0-100.0); Mean Platelet Volume 9.8 fL (9.4-12.4); Monocytes # 0.5 K/mcL (0.0-1.3); Monocytes % 14.8 %; Neutrophils # 1.9 K/mcL (1.6-8.9); Platelet Count 107 K/mcL (140-400); Red Blood Count 4.01 M/mcL (3.82-4.97); Red Cell Distribution Width 13.4 % (11.5-14.5); Segmented Neutrophils % 52.4 %; White Blood Count 3.6 K/mcL (4.3-11.1)
[2020-05-02] MEDS: Ondansetron 4 MG/2 ML VIAL IVP PRN (07:44)
[2020-05-02] MEDS: Gabapentin 300 MG CAPSULE PO SCH (08:34)
[2020-05-02] MEDS: *HR* Rivaroxaban 10 MG TABLET PO SCH (08:34)
[2020-05-02] MEDS: Fluticasone Propionate Nasal 50 MCG/SPRAY BOTTLE NS SCH (08:44)
[2020-05-02 08:49] VITALS: BP 101/56
== END 2020-05-02 13:48 | disposition home or self-care (01) ==
LOC: 3ANU 20:46 → EMEROOARM 20:46 → SUATTDRO 23:55 → 3ANU 04-30 00:28
PROVIDERS: ADMIT Internal Medicine; ATTEND Internal Medicine

== ENCOUNTER 2020-10-06 15:50 | Observation (INO) ==
[2020-10-06] MEDS ORDERED: *HR* HYDROcodone/Acet 5/325 mg TABLET PO ONE (16:31)
[2020-10-06] MEDS ORDERED: Isovue-370 500 ML BOTTLE IVP ONE (18:10)
[2020-10-06] MEDS ORDERED: 0.9 % Sodium Chloride 1,000 ML IV ONE (18:13)
[2020-10-06] MEDS ORDERED: Ondansetron ODT 4 MG TAB.RAPDIS SL ONE (20:05)
[2020-10-06] MEDS ORDERED: *HR* HYDROmorphone (PF) 1 MG/ML SYRINGE IM ONE (20:05)
[2020-10-06 20:42] LABS: Basophils % 0.6 %
[2020-10-06 20:44] LABS: Eosinophils # 0.2 K/mcL (0.0-0.6); Eosinophils % 5.2 %; Hemoglobin 12.6 g/dL (11.5-15.4); Immature Granulocytes % 0.3 % (0-4); Immature Platelets 1.5 % (1.1-6.1); Lymphocytes % 28.5 %; Mean Corpuscular HGB Conc 34.1 g/dL (31.6-35.5); Mean Corpuscular Hemoglobin 30.1 pg (28.0-33.3); Mean Corpuscular Volume 88.3 fL (83.0-100.0); Mean Platelet Volume 9.2 fL (9.4-12.4); Monocytes # 0.3 K/mcL (0.0-1.3); Monocytes % 9.3 %; Neutrophils # 1.9 K/mcL (1.6-8.9); Red Blood Count 4.19 M/mcL (3.82-4.97); Red Cell Distribution Width 14.1 % (11.5-14.5); Segmented Neutrophils % 56.1 %; White Blood Count 3.4 K/mcL (4.3-11.1)
[2020-10-06 20:49] LABS: Platelet Count 79 K/mcL (140-400)
[2020-10-06 21:01] LABS: BUN/Creatinine Ratio 24 (6-26); Blood Urea Nitrogen 17 mg/dL (8-23); Calcium 9.4 mg/dL (8.6-10.3); Carbon Dioxide 27 mEq/L (23-29); Chloride 103 mEq/L (98-107); Glucose 126 mg/dL (70-105); Osmolality,Calculated 285 (280-300); Potassium 3.8 mEq/L (3.5-5.1); Sodium 136 mEq/L (136-145); eGFR For African Americans > 60 (> 60); eGFR For Non-African Americans > 60 (> 60)
[2020-10-06] MEDS ORDERED: *HR* HYDROmorphone (PF) 1 MG/ML SYRINGE IVP ONE ×2 (22:27→22:59)
[2020-10-07] MEDS ORDERED: Sennosides/Docusate Sodium TABLET PO PRN (01:00)
[2020-10-07] MEDS ORDERED: Ipratropium/Albuterol Neb 3 ML IH PRN (01:00)
[2020-10-07] MEDS ORDERED: Ondansetron 4 MG/2 ML VIAL IVP PRN (01:06)
[2020-10-07] MEDS ORDERED: Naloxone 0.4 MG/ML INJ IVP PRN (01:06)
[2020-10-07] MEDS ORDERED: Acetaminophen 325 MG TABLET PO PRN (01:06)
[2020-10-07] MEDS ORDERED: *HR* Promethazine 25 MG/ML VIAL IM PRN (01:06)
[2020-10-07] MEDS ORDERED: *HR* HYDROcodone/Acet 5/325 mg TABLET PO PRN (01:06)
[2020-10-07] MEDS ORDERED: Melatonin 3 MG TABLET PO PRN (01:06)
[2020-10-07] MEDS: *HR* OxyCODONE Immed Rel 5 MG TABLET PO PRN ×2 (01:24→09:05)
[2020-10-07] MEDS ORDERED: *HR* LORazepam 2 MG/ML VIAL IVP ONE ×2 (01:44→14:05)
[2020-10-07] MEDS ORDERED: *HR* Rivaroxaban 10 MG TABLET PO SCH (09:00)
[2020-10-07] MEDS: Gabapentin 300 MG CAPSULE PO SCH ×2 (09:03→15:00)
[2020-10-07] MEDS ORDERED: *HR* HYDROmorphone (PF) 1 MG/ML SYRINGE IVP ONE ×2 (10:51→14:38)
[2020-10-07 15:36] VITALS: BP 168/98
== END 2020-10-07 16:06 | disposition home or self-care (01) ==
LOC: 3NENU 15:50 → EMEROOARM 15:50 → 3NENU 10-07 01:06
PROVIDERS: ADMIT Internal Medicine; ATTEND Internal Medicine